=== PATIENT | male | born 1955 | race Caucasian/White ===

== ENCOUNTER 2021-11-14 19:31 | Outpatient (CLI) | payer MEDICARE, BC, SELFPAY | END 2021-11-14 19:32 | disposition home or self-care (01) | DX: G47.33 Obstructive sleep apnea (adult) (pediatric) (principal) | CPT/HCPCS: 95806 ==

== ENCOUNTER 2022-03-15 13:23 | Outpatient (CLI) | payer MEDICARE, BC, SELFPAY ==
[2022-03-15 16:46] LABS: Albumin* 4.8 g/dL (3.3-5.0); Chloride* 98 mmol/L (96-114); Potassium* 3.7 mmol/L (3.6-5.1); Sodium* 139 mmol/L (135-149)
[2022-03-15 16:48] LABS: Estimated Glomerular Filt Rate 82 ml/min
[2022-03-15 16:49] LABS: Alanine Aminotransferase* 35 U/L (4-50); Alkaline Phosphatase* 65 U/L (40-150); Aspartate Amino Transferase* 53 U/L (12-35); Bilirubin Direct* 0.3 mg/dL (0.0-0.5); Bilirubin Total* 0.6 mg/dL (0.1-1.5); Blood Urea Nitrogen* 19 mg/dL (7-30); Carbon Dioxide* 30 mmol/L (20-32); Glucose* 96 mg/dL (60-115); Total Protein* 7.8 g/dL (6.0-8.3)
[2022-03-15 16:50] LABS: Calcium* 9.2 mg/dL (8.4-10.6)
== END 2022-03-15 13:24 | disposition home or self-care (01) ==
PROVIDERS: Visit Provider Nurse Practitioner Family
DX: J18.9 Pneumonia, unspecified organism (principal); J06.9 Acute upper respiratory infection, unspecified; R53.81 Other malaise
CPT/HCPCS: 80053; 80076; 87086

== ENCOUNTER 2022-11-24 13:51 | Emergency (ER) | payer OTHER, SELFPAY ==
[2022-11-24 13:58] VITALS: BP 151/81; PULSE 67; RESP 18; TEMP 36.5; O2SAT 98; BMI 34.1
--- NOTE | 2022-11-24 14:19 | CRLHL7_ITS ---
For Patients: As a result of the Century Cures Act, medical imaging exams and procedure reports are released immediately into your electronic medical record. You may view this report before your referring provider. If you have questions, please contact your health care provider. INDICATION: Left lower quadrant pain. TECHNIQUE: CT abdomen and pelvis acquired with 107 cc Isovue 370 IV contrast. COMPARISON: July 31, 2021. FINDINGS: Lower chest: Scattered atelectasis. Liver: Hepatic steatosis. Stable hyperdense focus in the right hepatic lobe. No suspicious masses. Gallbladder and bile ducts: Unremarkable. No stones or inflammation. No biliary dilatation. Pancreas: Unremarkable. No mass or inflammation. Spleen: Unremarkable. Normal in size. No masses. Adrenal glands: Unremarkable. No nodules. Kidneys: Unremarkable. No suspicious masses, stones, or hydronephrosis. GI tract: Severe colonic diverticulosis. Focal sigmoid diverticulitis.. Normal in caliber. No sign of mass or inflammation. Normal appendix. Vasculature: Moderate aortoiliac arterial calcifications. Abdominal aorta is normal in caliber. Mesenteric arteries are patent. Lymph nodes: No lymphadenopathy. Peritoneum/Abdominal Wall: Persistent small bowel containing umbilical hernia without obstruction. No sign of mass or infiltration. No free air or significant free fluid. Pelvis: Unremarkable. Bones: Unremarkable for age. IMPRESSION: Acute uncomplicated sigmoid diverticulitis. No drainable fluid collections. Additional severe pancolonic diverticulosis. Persistent small bowel containing umbilical hernia without obstruction. Please note that all CT scans at this facility use dose modulation, iterative reconstruction, and/or weight-based dosing when appropriate to reduce radiation dose to as low as reasonably achievable. Dictated by Ramsey Joya MD @ 11/24/2022 4:14:21 PM (Electronically Signed)
--- NOTE | 2022-11-24 14:34 | ED.GENADULT ---
HPI - General Adult General Date Seen: 11/24/22 Chief complaint: Abdominal Pain Stated complaint: Needs CT, lower abdominal pain Time Seen by Provider: 11/24/22 13:53 Source: patient Mode of arrival: ambulatory Limitations: no limitations History of Present Illness HPI narrative: Patient is a 67-year-old male presenting for meds but full left lower quadrant abdominal pain. Says the pain has been going on for the past couple days. Denies ever having pain like this before. States this worsened left lower quadrant does radiate across his abdomen and to the suprapubic and right lower quadrant region. Has had colonoscopies in the past showing had he does have diverticulosis. Had a bowel movement this morning that she says was a normal bowel but was soft and normal. Denies any dysuria. Has had a low-grade fever intermittently that had a T-max of 100? F. he went to urgent care initially and he was sent to us for a CT scan for better evaluation of his symptoms. He has not been around any sick contacts that he is aware of. Has had some occasional nausea but otherwise has been eating and drinking normally. Denies PCB medications at the urgent care. Denies chest pain, shortness of breath, headache, vision changes, lightheadedness, dizziness, weakness, numbness. Has had a previous left inguinal hernia pair and has recurrent umbilical hernia Related Data Home Medications Medication Instructions Recorded Confirmed amlodipine 5 mg tablet 5 mg PO 03/15/22 11/24/22 losartan 25 mg tablet 25 mg PO 03/15/22 11/24/22 omeprazole 20 mg capsule,delayed 20 mg PO 03/15/22 11/24/22 release albuterol sulfate 90 mcg/actuation inhalation 11/24/22 11/24/22 aerosol inhaler aspirin 81 mg tablet,delayed 81 mg PO QDAY 11/24/22 11/24/22 release (Adult Low Dose Aspirin) carvedilol 12.5 mg tablet 12.5 mg PO BID blood pressure 11/24/22 11/24/22 clopidogrel 75 mg tablet 75 mg PO DAILY 11/24/22 11/24/22 nitroglycerin 0.4 mg sublingual 0.4 mg sublingual ONCE 11/24/22 11/24/22 tablet rosuvastatin 20 mg tablet 20 mg PO QPM 11/24/22 11/24/22 Previous Rx's Medication Instructions Recorded amoxicillin 875 mg-potassium 1 tab PO Q8H #15 tabs 11/24/22 clavulanate 125 mg tablet ondansetron 4 mg disintegrating 4 mg PO Q6H #20 tabs 11/24/22 tablet Allergies Allergy/AdvReac Type Severity Reaction Status Date / Time No Known Drug Allergies Allergy Verified 11/24/22 12:43 Review of Systems Status of ROS: Reports: 10 or more systems reviewed and unremarkable except as noted in History and below PFSH PFS Medical History Sinus infection ?J32.9 - Chronic sinusitis, unspecified (ICD-10) Malaise ?R53.81 - Other malaise (ICD-10) Social History Smoking Status: Former smoker Do you use any of these nicotine containing products: None Exam Narrative: Exam Narrative: Const: Well-nourished, Well-developed, in mild distress Eyes: PERRL, no conjunctival injection, and symmetrical lids ENMT: Atraumatic external nose and ears. Moist mucous membranes. Neck: Symmetric, trachea midline, No thyromegaly. CVS: RRR, No murmurs or gallops. Peripheral pulses 2+ and equal in all extremities RESP: Unlabored respiratory effort. Clear to auscultation bilaterally. GI: Diffuse abdominal tenderness worse in the left lower quadrant, mild guarding, reducible umbilical hernia MSK:Extremities w/o deformity, Normal Active ROM Skin: Warm, Dry. No rashes or lesions. Neuro: Normal Muscle tone, No focal neurological deficits. Psych: Awake, Alert, & Oriented x3. Appropriate mood and affect. Const: Vital Signs, click to edit/add: Vital Signs - 24 hr 11/24/22 13:58 11/24/22 16:30 Temperature 97.7 F 97.6 F Pulse Rate [Right Pulse Oximeter] 67 70 Respiratory Rate 18 16 Blood Pressure [Ri ght Upper Arm] 151/81 H 141/96 H Pulse Oximetry 98 96 Oxygen Delivery Me thod Room Air Room Air Course Vital Signs Vital signs: Initial Vital Signs Temperature 97.7 F 11/24/22 13:58 Temperature Source Temporal Artery Scan 11/24/22 13:58 Pulse Rate 67 11/24/22 13:58 Respiratory Rate 18 11/24/22 13:58 Blood Pressure 151/81 H 11/24/22 13:58 Blood Pressure Mean 104 11/24/22 13:58 Blood Pressure Position Sitting 11/24/22 13:58 Pulse Oximetry 98 11/24/22 13:58 Oxygen Delivery Method Room Air 11/24/22 13:58 Vital Signs Temperature 97.7 F 11/24/22 13:58 Pulse Rate 67 11/24/22 13:58 Respiratory Rate 18 11/24/22 13:58 Blood Pressure 151/81 H 11/24/22 13:58 Pulse Oximetry 98 11/24/22 13:58 Oxygen Delivery Method Room Air 11/24/22 13:58 Temperature 97.6 F 11/24/22 16:30 Pulse Rate 70 11/24/22 16:30 Respiratory Rate 16 11/24/22 16:30 Blood Pressure 141/96 H 11/24/22 16:30 Pulse Oximetry 96 11/24/22 16:30 Oxygen Delivery Method Room Air 11/24/22 16:30 Medical Decision Making MDM Narrative Medical decision making narrative: Patient is a 67-year-old male the 4 quadrant abdominal pain. Symptoms were gone for the past few days. Has known diverticulosis. Has had bowel movement today they says was softer than normal. Some nausea but no vomiting. Previous hernia surgery under current reducible umbilical hernia but no other abdominal surgeries. Initially went to Urgent Care was sent here for CT scan. Patient given Toradol and Zofran for his symptoms. Also we were cbc, CMP, urinalysis. COVID/flu/RSV is also in the ordered. Lipase was not ordered because we do not have the reagent available at this time and pancreatitis is unlikely. We did order CT with IV contrast which will also feel as if there any signs of pancreatitis. Patient's CBC showed no concerning abnormalities. CMP showed no concerning abnormalities. Urinalysis shows no signs of UTI. COVID/flu/RSV is negative. Patient was given Toradol for pain and Zofran for nausea. Also given 1 L of normal saline. His CT scan was ordered and results showed acute uncomplicated diverticulitis as expected. This is consistent with his symptoms. No signs of pancreatitis. No signs of appendicitis. He is otherwise doing well me discharged home with Augmentin and given a prescription for Zofran. He is agreeable to this plan. Lab Data Labs: Lab Results 11/24/22 11/24/22 Range/Units 14:19 14:45 WBC 9.14 (4.50-11.00) K/uL RBC 4.54 (4.30-5.90) m/uL Hgb 14.0 (13.5-17.5) gm/dL Hct 42.8 (37.0-53.0) % MCV 94 (80-100) fL MCH 31 (26-34) pg MCHC 33 (32-36) gm/dL RDW Coeff of Dulce 12.1 (11.5-15.5) % Plt Count 227 (140-440) K/uL Neut % (Auto) 76.5 H (42.0-72.0) % Lymph % (Auto) 14.9 L (20-44) % [place] % (Auto) 7.3 (0.0-11.0) % Eos % (Auto) 0.9 (0.0-7.0) % Baso % (Auto) 0.1 (0.0-3.0) % Neut # (Auto) 7.00 (1.7-7.0) K/uL Lymph # (Auto) 1.40 (0.90-2.90) K/uL [place] # (Auto) 0.70 (0.00-0.90) K/UL Eos # (Auto) 0.08 (0.00-0.50) K/uL Baso # (Auto) 0.01 (0.00-0.30) K/uL Abs Immat Gran (auto) 0.03 (0.00-0.30) K/uL Imm/Tot Granulo (auto) 0.3 % Sodium 132 L (135-149) mmol/L Potassium 4.2 (3.6-5.1) mmol/L Chloride 96 (96-114) mmol/L Carbon Dioxide 24 (20-32) mmol/L Anion Gap 12 (7-15) mEq/L BUN 15 (7-30) mg/dL Creatinine 0.6 (0.5-1.5) mg/dL Estimated Creat Clear 66.10 Estimated GFR 105 ml/min Glucose 92 (60-115) mg/dL Calcium 8.8 (8.4-10.6) mg/dL Total Bilirubin 0.5 (0.1-1.5) mg/dL AST 29 (12-35) U/L ALT 21 (4-50) U/L Alkaline Phosphatase 59 (40-150) U/L Total Protein 7.9 (6.0-8.3) g/dL Albumin 4.4 (3.3-5.0) g/dL Urine Color Yellow (Yellow) Urine Appearance Clear (Clear) Urine pH 5.5 (5.0-8.5) Ur Specific Slaughter 1.025 (1.000-1.030) Urine Protein 1+ A (Negative) Urine Glucose (UA) Negative (Negative) Urine Ketones Trace A (Negative) Urine Blood 1+ A (Negative) Urine Nitrite Negative (Negative) Urine Bilirubin Negative (Negative) Urine Urobilinogen 0.2 (0.2-1.0) Ur Leukocyte Esterase Negative (Negative) Urine RBC 0-2 (0-2) Urine WBC 0-2 (0-5) Ur Squamous Epith Cells None (None-Few) Urine Bacteria None (None) SARS-CoV-2 (PCR) Negative SARS-CoV-2 (Negative) Influenza Type A (PCR) Negative PCR FLU A (Negative) Influenza Type B (PCR) Negative PCR FLU B (Negative) RSV (PCR) Negative PCR RSV (Negative) Imaging Data CT scan - abdomen: Radiologist's impression: INDICATION: Left lower quadrant pain. TECHNIQUE: CT abdomen and pelvis acquired with 107 cc Isovue 370 IV contrast. COMPARISON: July 31, 2021. FINDINGS: Lower chest: Scattered atelectasis. Liver: Hepatic steatosis. Stable hyperdense focus in the right hepatic lobe. No suspicious masses. Gallbladder and bile ducts: Unremarkable. No stones or inflammation. No biliary dilatation. Pancreas: Unremarkable. No mass or inflammation. Spleen: Unremarkable. Normal in size. No masses. Adrenal glands: Unremarkable. No nodules. Kidneys: Unremarkable. No suspicious masses, stones, or hydronephrosis. GI tract: Severe colonic diverticulosis. Focal sigmoid diverticulitis.. Normal in caliber. No sign of mass or inflammation. Normal appendix. Vasculature: Moderate aortoiliac arterial calcifications. Abdominal aorta is normal in caliber. Mesenteric arteries are patent. Lymph nodes: No lymphadenopathy. Peritoneum/Abdominal Wall: Persistent small bowel containing umbilical hernia without obstruction. No sign of mass or infiltration. No free air or significant free fluid. Pelvis: Unremarkable. Bones: Unremarkable for age. IMPRESSION: Acute uncomplicated sigmoid diverticulitis. No drainable fluid collections. Additional severe pancolonic diverticulosis. Persistent small bowel containing umbilical hernia without obstruction. Please note that all CT scans at this facility use dose modulation, iterative reconstruction, and/or weight-based dosing when appropriate to reduce radiation dose to as low as reasonably achievable. Dictated by Ramsey Joya MD @ 11/24/2022 4:14:21 PM Discharge Plan Discharge Clinical Impression: Diverticulitis Patient Disposition: Home, Self-Care Condition: Stable Instructions: Diverticulitis (ED) Additional Instructions: You have diverticulitis. Take Zofran as needed for nausea. Take the Augmentin as directed to clear the infection. Follow up with the primary care provider. Urine take Tylenol and ibuprofen for pain. Return for new worsening symptoms Prescriptions: New amoxicillin-pot clavulanate 875-125 mg tablet 1 tab PO Q8H Qty: 15 0RF ondansetron 4 mg tablet,disintegrating 4 mg PO Q6H Qty: 20 0RF No Action losartan 25 mg tablet 25 mg PO omeprazole 20 mg capsule,delayed release(DR/EC) 20 mg PO amlodipine 5 mg tablet 5 mg PO Patient Comments: TAKE 1 TABLET BY MOUTH DAILY carvedilol 12.5 mg tablet 12.5 mg PO BID rosuvastatin 20 mg tablet 20 mg PO QPM clopidogrel 75 mg tablet 75 mg PO DAILY albuterol sulfate 90 mcg/actuation HFA aerosol inhaler inhalation aspirin [Adult Low Dose Aspirin] 81 mg tablet,delayed release (DR/EC) 81 mg PO QDAY nitroglycerin 0.4 mg tablet, sublingual 0.4 mg sublingual ONCE Rx Instructions: as a single dose; administer 5-10 minutes before situation known to precipitate angina attack Follow Up/Referrals: Geneva Singer MD [Primary Care Provider] - Stand Alone Forms: [facility] Info Instructions
[2022-11-24 14:35] LABS: Appearance Urine Clear (Clear); Bilirubin Urine Negative (Negative); Blood Urine 1+ (Negative); Color Urine Yellow (Yellow); Glucose Urine Negative (Negative); Ketones Urine Trace (Negative); Leukocyte Esterase Urine Negative (Negative); Nitrite Urine Negative (Negative); Protein Urine 1+ (Negative); Specific Gravity Urine 1.025 (1.000-1.030); Urobilinogen Urine 0.2 (0.2-1.0); pH Urine 5.5 (5.0-8.5)
[2022-11-24 14:49] LABS: RBC Urine 0-2 (0-2); WBC Urine 0-2 (0-5)
[2022-11-24 14:52] LABS: Basophils Absolute Auto 0.01 K/uL (0.00-0.30); Basophils Percent Auto 0.1 % (0.0-3.0); Eosinophils Absolute Auto 0.08 K/uL (0.00-0.50); Eosinophils Percent Auto 0.9 % (0.0-7.0); Hematocrit 42.8 % (37.0-53.0); Immature Granulocytes Abs Auto 0.03 K/uL (0.00-0.30); Immature Granulocytes Pct Auto 0.3 %; Lymphocytes Percent Auto 14.9 % (20-44); Mean Corpuscular HGB Conc 33 gm/dL (32-36); Mean Corpuscular Hemoglobin 31 pg (26-34); Mean Corpuscular Volume 94 fL (80-100); Monocytes Percent Auto 7.3 % (0.0-11.0); Neutrophils Percent Auto 76.5 % (42.0-72.0); Platelet Count* 227 K/uL (140-440); RDW Coefficient of Variation % 12.1 % (11.5-15.5); Red Blood Count 4.54 m/uL (4.30-5.90); White Blood Count* 9.14 K/uL (4.50-11.00)
[2022-11-24 14:58] LABS: Slide Review Reflex No
[2022-11-24] MEDS: KETOROLAC 15 MG/ML inj IVP ×2 (15:03→16:42)
[2022-11-24 15:04] LABS: Albumin* 4.4 g/dL (3.3-5.0); Chloride* 96 mmol/L (96-114)
[2022-11-24] MEDS: ONDANSETRON 2 MG/ML inj 4 MG IVP (15:04)
[2022-11-24 15:05] LABS: Potassium* 4.2 mmol/L (3.6-5.1); Sodium* 132 mmol/L (135-149)
[2022-11-24 15:07] LABS: Anion Gap 12 mEq/L (7-15); Aspartate Amino Transferase* 29 U/L (12-35); Bilirubin Total* 0.5 mg/dL (0.1-1.5); Carbon Dioxide* 24 mmol/L (20-32); Creatinine* 0.6 mg/dL (0.5-1.5); Estimated Glomerular Filt Rate 105 ml/min; Total Protein* 7.9 g/dL (6.0-8.3)
[2022-11-24 15:08] LABS: Alanine Aminotransferase* 21 U/L (4-50); Alkaline Phosphatase* 59 U/L (40-150); Blood Urea Nitrogen* 15 mg/dL (7-30); Calcium* 8.8 mg/dL (8.4-10.6); Glucose* 92 mg/dL (60-115)
[2022-11-24 15:30] LABS: PCR FLU A Negative PCR FLU A (Negative); PCR FLU B Negative PCR FLU B (Negative); PCR RSV Negative PCR RSV (Negative)
[2022-11-24 15:33] LABS: SARS PCR* Negative SARS-CoV-2 (Negative)
[2022-11-24 16:30] VITALS: BP 141/96; PULSE 70; RESP 16; TEMP 36.4; O2SAT 96
[2022-11-24] MEDS: AMOXICILLIN/CLAVULANATE 875 mg/125 mg TABLET PO (16:42)
== END 2022-11-24 16:52 | disposition home or self-care (01) ==
PROVIDERS: Emergency Provider Student in an Organized Health Care Education/Training Program; PCP Internal Medicine
DX: K57.92 Diverticulitis of intestine, part unspecified, without perforation or abscess without bleeding (principal)
CPT/HCPCS: 36415; 74177; 80053; 81001; 85025; 87631; 96374; 96375; 99283; 99284; 99285; A9270; J1885; J2405; Q9967

== ENCOUNTER 2024-10-27 14:45 | Outpatient (RCR) | payer OTHER, SELFPAY ==
--- NOTE | 2024-08-26 11:42 | PT.OPEX ---
PT [place] Outpatient Eval PT [facility] Outpatient Eval Start: 08/25/24 13:28 Freq: Status: Active Protocol: Document 08/25/24 13:43 VMS (Rec: 08/25/24 16:05 VMS [id number]) E-signed By Yesenia Gonzalez Physical Therapy Outpatient Evaluation Insurance Information Recert Due Date 11/17/24 Insurance Name [employer] Insurance HP Journey Information/Comments Medical Diagnosis Plantar fascial fibromatosis Calcaneal bone contusion Treating Diagnosis L heel pain Antalgic gait and impaired balance secondary to plantar fasciitis Imaging Report 08/20/2024: Axial and Lateral views of the left heel Information were obtained today from [facility], were ordered and reviewed by me today, and show no acute fractures, avulsions, or intraosseous pathology. No signs of AVN. No significant osteophytosis or spurring . Referring MD Olvin Carlos Subjective Preferred Name Efrain Subjective Aug 25 2024 : Efrain is a 69 year M with complaints of left heel pain. Currently, he experiences severe pain upon waking and walking with shoes and without shoes. Later in the day can walk but still painful. Onset: 2 weeks ago Aggravating Factors: Walking, resting long periods of time Easing Factors: Stretching, ibuprofen Method of Injury: insidious onset Radiation: Denies Numbness / Tingling: Tingling in the front of the foot (existing concern that is being managed) Progression: gradually improving since appointment with Dr. Carlos Shoes: Sketchers, slippers at home, unable to walk barefoot History of Foot Injuries: no hx of plantar fasciitis. Review of Systems: History obtained from chart review, health history form, and the patient. I am only responding to those symptoms which are directly relevant to my consultation. Recommend the patient follow up with their primary/referring provider for other symptoms. PMH: Stent 2 years ago, HTN, high cholesterol, numbness /tingling in ankle/foot --> All being managed by PCP. Pt notes he feels all are well-controlled. One fall in the last year: tripped over pallet at [place]. No injuries resulting from fall. Pain Comments Pain Location/Type/Rating: stabbing in heel 1-2/10 current 1-2/10 at rest 9/10 at worst Date of Last 08/20/24 Physician Visit Current Work Status Retired Objective Other/Pertinent Functional Tests: Objective Gait: antalgic gait, decreased stance time on left Squats: limited squat depth Balance: tandem: L in back --> 10 sec; R in back --> <5 sec CKC DF: R: 7 cm; L: 10 cm Palpation: TTP on distal end of calcaneus (at insertion of plantar fascia). No TTP along lateral/medial rims of the calcaneus or along distal 2/3 of plantar fascia Posture/Observation: Pes planus in standing A/PROM: Ankle: PF: 80 R; 70 L DF (straight knee/gastroc): -19 deg bilat DF (bent knee): R: -10 deg; L: -13 deg Eversion: R: 20 deg; L: 15 deg Inversion: R: 25 deg; L: 20 deg Knee: Flex: WFL bilat Ext: WFL bilat Strength: Ankle: PF: 5/5 bilat DF: 4/5 bilat Eversion: 5/5 bilat Inversion: 5/5 bilat Knee: Quadriceps: R: 5/5; L: 4/5 with fatiguing weakness Hamstrings: 4+/5 bilat Special Tests: Plantar Fasciitis: Windlass test: (+) on L Tinel's Sign for Tibial Nerve: (+) on L for N/T on lateral anterior dorsum of foot Assessment Assessment/ 2024-08-25: Initial Evaluation Assessment & PT Impression Impression: Efrain is a pleasant 69 year male presenting to outpatient physical therapy with primary complaint of left heel pain secondary to plantar fasciitis. Pertinent physical examination findings include limited gastrocnemius and soleus length, pes planus (contributing to risk of developing plantar fasciitis), impaired balance, and a positive Windlass test. Functionally, the patient is limited in activities including walking without pain and completing ADLs. Education to patient and regarding typical timeline of healing, recommendations for footwear/orthotics, and results of examination. He requires skilled physical therapy in order to address the above impairments, improve patients symptom status, and assist him in returning to his prior level of function. Barriers to Learning: None Primary Functional ADLs, walking, gardening, recreational/social Limitations activities Plan of Care Rehabilitation Excellent Potential Physical Therapy STG: Goals 1. Patient will be independent with HEP by the end of 2 weeks. 2. Patient will be able to walk short distances (5-10 feet) without pain higher than 2/10 by the end of 2 weeks. LT. Patient will be able to walk longer distances (50+ feet) without pain higher than 2/10 by the end of 8 weeks in order to facilitate completion of ADLs as well as participation in recreational/social activities. 2. Patient's gastrocnemius length will increase by at least 10 deg bilaterally by the end of 8 weeks to decrease risk of re-aggravation of plantar fasciitis. Patient goal: 1. Patient will be able to garden for at least 30 minutes pain free by the end of PT course of care. Coordination/ Referral Source Communication With Treatment Plan/ Joint Mobilization,Manual Therapy,Neuromuscular Re-ed, Direct Interventions Therapeutic Activities,Therapeutic Exercises Frequency/Duration 1x/week for 8 weeks Patient Will Be Completion of LTG(s),Independent w/HEP,Independently Discharged From Progressing Therapy Evaluation Billing Untimed Code 42 Treatment Minutes Complexity Low Certification Information Provider Signature Communication Only-No Signature Required Required
== END 2024-11-13 11:49 | disposition home or self-care (01) ==
PROVIDERS: PCP Internal Medicine; Visit Provider Orthopaedic Surgery Sports Medicine
DX: M72.2 Plantar fascial fibromatosis (principal); T14.8XXA Other injury of unspecified body region, initial encounter; Z51.89 Encounter for other specified aftercare
CPT/HCPCS: 97110; 97140; 97161

== ENCOUNTER 2024-12-17 16:39 | Emergency (ER) | payer OTHER, SELFPAY ==
--- OUTSIDE RECORDS SUMMARY | 2024-11-05 12:10 | XMS_ITS | Encounter Summary ---
Author Organization [facility] Address [address] [place] [address] Care Team Providers Care Label Cutter Name Role Phone Geneva Singer MD Primary Care Provide r Encounter Details Date Type Department Care Team (Late st Contact Info) Description 11/05/2024 12:10 PM CDT Lab Visit [facility] [id number] [place] [id number] Hyponatremia; Localized edema Social History Tobacco Use Types Packs/Day Years Used Date Smoking Tobacco: Former Cigarettes 1 40 0 05/07/1979 - 05/07/2019 Smokeless Tobacco: Never Alcohol Use Standard Drinks/Week Comments Yes 0 (1 standard drink = 0.6 oz pur e alcohol) 6/week PHQ-2 Answer Date Recorded PHQ-2 Score 1 10/13/2024 Financial Resource Strain Answer Date R ecorded Is it hard for you to pay fo r the very basics like food, housing, medical care or heating? No 01/21/2023 Food Insecurity Answer Date Recorded Does your food run out before you have the money to buy more? No 01/21/2023 Transportation Needs Answer Date Record ed Does a lack of transportatio n keep you from your medical appointments or from getting your medications? 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 file documented as of this encounter Plan of Treatment Upcoming Encounters Date Type Department Care Team (Late st Contact Info) Description 01/25/2025 5:00 PM CDT Appointment [facility] Internal Medicine [address] [place] [address] Geneva Singer MD [address] [place] [address] Medicare Annual Wellness documented as of this encounter Procedures Procedure Name Priority Date/Time Associated Diagnosis Comments BASIC METABOLIC PANEL Routine 11/05/2024 12:12 PM CDT Hyponatremia Localized edema documented in this encounter Results * (ABNORMAL) Basic Metabolic Panel (11/05/2024 12:12 PM CDT) Sodium 134(L) 136 - 145 mmol/L 11/05/2024 5:03 PM [facility] Potassium 4.5 3.5 - 5.1 mmol/L 11/05/2024 5:03 PM [facility] Chloride 98 98 - 109 mmol/L 11/05/2024 5:03 PM [facility] CO2 24 20 - 29 mmol/L 11/05/2024 5:03 PM [facility] Anion Gap 12 6 - 16 mmol/L 11/05/2024 5:03 PM [facility] Calcium 9.3 8.4 - 10.4 mg/dL 11/05/2024 5:03 PM [facility] BUN 13 7 - 26 mg/dL 11/05/2024 5:03 PM [facility] Creatinine 0.70(L) 0.73 - 1.18 mg/dL 11/05/2024 5:03 PM [facility] Glucose 93 70 - 100 mg/dL 11/05/2024 5:03 PM [facility] Comment:The given reference range is for the fasting state. Non-fasting reference range for glucose is 70 - 180 mg/dL. GFR, Estimated >60 >60 mL/min/1.7 3m2 11/05/2024 5:03 PM [facility] Hours Fasting 0.0 8 - 12 Hours 11/05/2024 5:03 PM CDT [facility] Blood Venipuncture / Unknown 11/05/2024 12:12 PM CDT 11/05/2024 12:12 PM CDT us Jonah Riggins MD LAB_1 Final Result Performing Organization Address City/State/[facility] Co de Phone Number [facility] [address] [place] [phone] documented in this encounter Visit Diagnoses Diagnosis Hyponatremia Hyposmolality and/or hyponatremia Localized edema Edema documented in this encounter Care Teams Label Cutter Relationship Specialty Start Date End Date Geneva Singer MD [address] [place] [id number] PCP - General Internal Medicine 12/08/19 documented as of this encounter
--- OUTSIDE RECORDS SUMMARY | 2024-12-17 16:41 | XMS_ITS | Encounter Summary ---
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 Kelli Vasquez PharmD * Kelli Vasquez PharmD - 10/28/2024 1:38 PM CDT LMTCB with BP readings. Kelli Vasquez PharmD * Kelli Vasquez PharmD - 10/21/2024 11:31 AM CDT Called pt to follow up on recent home BP readings. LMTCB. Kelli Vasquez PharmD documented in this encounter Plan of Treatment Upcoming Encounters Date Type Department Care Team (Late st Contact Info) Description 01/25/2025 5:00 PM CDT Appointment [facility] Internal Medicine [place], [place] [phone] Geneva Singer MD [place], [place] [phone] Medicare Annual Wellness documented as of this encounter Visit Diagnoses Not on filedocumented in this encounter Care Teams Underwriting Specialist Relationship Specialty Start Date End Date Geneva Singer MD [place], [place] [phone] PCP - General Internal Medicine 12/08/19 documented as of this encounter
--- OUTSIDE RECORDS SUMMARY | 2024-12-17 16:41 | XMS_ITS | Encounter Summary ---
Author Organization [facility] Address [address], [place] [address] Care Team Providers Care Computer Instructor Name Role Phone Geneva Singer MD Primary Care Provide r Encounter Details Date Type Department Care Team (Late Contact Info) Description 01/20/2016 Scanned History External to Transferred Record, Provider [facility] Social History Tobacco Use Types Packs/Day Years Used Date Smoking Tobacco: Never Assessed Sex and Gender Information Value Date Recorded Sex Assigned at Not on file Legal Sex Male 9:51 AM TRANSFER STATION ATTENDANT Gender Identity Not on file Sexual Orientation Not on file documented as of this encounter Plan of Treatment Upcoming Encounters Date Type Department Care Team (Late st Contact Info) Description 01/25/2025 5:00 PM CDT Appointment [facility] Internal Medicine [address] [place] [phone] Geneva Singer MD [address] [place] [address] Medicare Annual Wellness documented as of this encounter Visit Diagnoses Not on filedocumented in this encounter Additional Health Concerns Infection Onset Date Last Indicated Resolved Time R/O COVID19 10/08/2019 10/08/2019 10/10/2019 5:26 AM CDT documented as of this encounter Care Teams Computer Instructor Relationship Specialty Start Date End Date Geneva Singer MD [address] [place] [phone] PCP - General Internal Medicine 12/08/19 documented as of this encounter
--- OUTSIDE RECORDS SUMMARY | 2024-12-17 16:41 | XMS_ITS | Encounter Summary ---
Author Organization [employer] Address [address] [place] [address] Care Team Providers Care Shaper Setter Name Role Phone Geneva Singer MD Primary Care Provide r Encounter Details Date Type Department Care Team (Late Contact Info) Description 06/16/2019 [facility] 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 file documented as of this encounter Plan of Treatment Upcoming Encounters Date Type Department Care Team (Late Contact Info) Description 01/25/2025 5:00 PM CDT Appointment [facility] Internal Medicine [address] [place], [place] [phone] Geneva Singer MD [address] [place], [place] [phone] Medicare Annual Wellness documented as of this encounter Visit Diagnoses Not on filedocumented in this encounter Additional Health Concerns Infection Onset Date Last Indicated Resolved Time R/O COVID19 10/08/2019 10/08/2019 10/10/2019 5:26 AM CDT documented as of this encounter Care Teams Shaper Setter Relationship Specialty Start Date End Date Geneva Singer MD [address] [place] [phone] PCP - General Internal Medicine 12/08/19 documented as of this encounter
--- OUTSIDE RECORDS SUMMARY | 2024-12-17 16:41 | XMS_ITS | Clinical Summary ---
Author Organization [facility] Address [address] [place] [phone] Care Team Providers Care Demolition Expert Name Role Phone Geneva Singer MD Primary Care Provide r Allergies No known active allergies Medications carvedilol (COREG) 12.5 mg tabletIndication s:HTN (hypertension) Take 1 tablet by mouth 2 times daily. 180 tablet 3 6 Active sildenafil citrate (VIAGRA) 100 mg tabletIndication s:Erectile dysfunction of organic origin Take 1 tablet by mouth once daily if needed for Erectile Dysfunction. Take 30min to 4 hours before sexual activity. Max 100mg/24hr. 10 tablet 2 6 Active losartan (COZAAR) 25 mg tablet Take 25 mg by mouth once daily. Active rosuvastatin (CRESTOR) 10 mg tablet Take 10 mg by mouth at bedtime. Active omeprazole 20 mg tablet Take 20 mg by mouth once daily. Active aspirin (ECOTRIN) 81 mg enteric coated tablet Take 81 mg by mouth once daily with a meal. Active clopidogreL (Plavix) 75 mg tablet Take 75 mg by mouth once daily. Active cyanocobalamin (Vitamin B-12) 1,000 mcg tablet Take 1,000 mcg by mouth once daily. Active cholecalciferol, vitamin D3, (VITAMIN D3 ORAL) Take 1,000 Int'l Units/L by mouth once daily. Active gabapentin (Neurontin) 100 mg capsule Take 100 mg by mouth three times daily. Active amLODIPine (NORVASC) 5 mg tablet Take 5 mg by mouth once daily. Active Active Problems Problem Noted Date Diagnosed Date Gastroesophageal reflux disease without esophagi tis 01/06/2023 Alcohol dependence, uncomplicated 01/06/2023 Stented coronary artery 09/20/2022 Overview (01/06/2023): Patient is on Clopidogrel (Plavix) following stent placement. Date of Intervention: 09/20/2022 Type of Stent: HAILE Patient is expected to continue taking Clopidogrel (Plavix) for one year (until 09/20/2023) unless otherwise advised due to subsequent stent placement or continued bleeding. TIMOTHY (obstructive sleep apnea) 01/03/2022 Overview (01/06/2023): Moderate by HST 10/2021 History of colonic polyps 01/05/2021 Vitamin B12 deficiency 10/18/2020 Overview (01/06/2023): Paresthesias. Start oral B12 09/2020 Chest wall mass 05/17/2020 Overview (01/06/2023): Added automatically from request for surgery [id number] SIADH (syndrome of inappropriate ADH production) 07/13/2019 Hyponatremia 07/13/2019 Anxiety disorder 07/13/2019 Sacroiliac joint dysfunction 12/23/2018 Fatty liver 02/04/2018 Tinea pedis of both feet 06/11/2017 Umbilical hernia without obstruction and without gangrene 06/11/2017 Former smoker 06/12/2016 Family history of colon cancer 06/12/2016 COPD (chronic obstructive pulmonary disease) Overview (01/06/2023): Quit smoking 04/2016. 40+ pack year history Mixed hyperlipidemia 01/20/2016 Benign neoplasm of sigmoid colon 09/23/2015 Diverticular disease of large intestine 09/21/19 16 Diaphragmatic hernia 09/21/2015 Erectile dysfunction of organic origin 6 Dysphagia 07/19/2015 HTN (hypertension) 11/12/2014 Depression 11/12/2014 Irritable bowel syndrome with diarrhea 5 Resolved Problems Problem Noted Date Diagnosed Date Resolved Date Tobacco abuse 11/12/2014 05/05/2015 Immunizations Immunization Administration Dates Next Due Influenza, IIV4 02/05/2015 Family History Medical History Relation Name Comments Cancer Father Hypertension Father Diabetes Maternal Aunt Heart Disease Maternal Grandfather Diabetes Maternal Grandmother Heart Disease Maternal Grandmother Heart Disease Paternal Grandmother Relation Name Status Comments Father Maternal Aunt Maternal Grandfather Maternal Grandmother Paternal Grandmother Social History Tobacco Use Types Packs/Day Years Used Date Smoking Tobacco: Former Cigarettes 1 42.1 0 04/04/1973 - 04/28/2015 Passive Smoke Exposure: Past Tobacco Cessation:Counseling Given: Not Answered Alcohol Use Standard Drinks/Week Comments Yes 10 (1 standard drink = 0.6 oz pu re alcohol) PHQ-2 Answer Date Recorded PHQ-2 TOTAL SCORE 1 10/22/2023 Sex and Gender Information Value Date Recorded Sex Assigned at Not on file Legal Sex Male 12:42 PM CDT Gender Identity Not on file Sexual Orientation Not on file 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 Not on file Not on file Obstetrics History Last Filed Vital Signs Vital Sign Reading Time Taken Comments Blood Pressure 122/73 11/20/2023 1:02 PM CDT MAP- 93 Pulse 64 11/20/2023 1:02 PM CDT Temperature 36.6 C (97.8 F) 11/20/2023 1:02 PM CDT Respiratory Rate 16 11/20/2023 1:02 PM CDT Oxygen Saturation 93% 11/20/2023 1:0 2 PM CDT Inhaled Oxygen Concentration - - Weight 103 kg (227 lb) 11/20/2023 1:02 PM CDT Per patient statement- not measured this visit Height 165.1 cm (5' 5) 07/09/2023 2:00 PM CDT Body Mass Index 37.77 07/09/2023 2:00 PM CDT Plan of Treatment Health Maintenance Due Date Last Done Comments Hepatitis C screening for age 18-79 1972 Pneumococcal series for age 50+ (1 of 2 - PCV) 1973 Zoster (shingles) series for age 50+ (1 of 2) 2004 RSV vaccine for adults or (1 - Risk 60-74 years 1-dose series) 2014 BMI (ht and wt on same day) for age 18+ 01/19/2017 01/20/2016, 05/05/2015 Medicare Wellness for age 65+ 2019 Lipids for age 45-75 05/06/2020 05/06/2015 Colonoscopy through age 75 09/20/2020 09/21/2015 Tetanus booster 08/31/2024 08/31/2014 (Comp leted outside of [facility]) Depression screening for age 12+ 10/17/2024 10/18/2023, 07/09/2023, 01/07/2023, Additional history exists COVID-19 vaccine series (2024- season) 2024 01/07/2023, 12/14/2021, 09/04/2021, Additional history exists Influenza Vaccine (#1) 2024 02/05/2015 Hepatitis B series for 19+ Aged Out N o longer eligible based on patient's age to complete this topic Procedures Procedure Name Priority Date/Time Associated Diagnosis Comments SCAN-COLONOSCOPY 09/21/2015 8:30 AM CDT LIPID PANEL W REFLEX MEASURED LDL Routine 05/06/2015 8:07 AM SENIOR BI ARCHITECT Hyperlipidemia, unspecified hyperlipidemia type from Last 3 Months or Most Recently Relevant to Health Maintenance Results * SCAN-COLONOSCOPY (09/21/2015 8:30 AM CDT) Narrative Transcriptions Nicky Rooney MD - 09/21/2015 7:37 AM CDT [facility] [address]], [address], [place] [address] Patient Name: Efrain Ramos Gender: Male Exam Date: 09/21/2015 Visit Number: [id number] Age: 60 Years Date of : 1955 Attending MD: Nicky Rooney MD Medical Record#: [id number] ----- Procedure: Colonoscopy Indications: Family history of colon cancer in patient's father. Agediagnosed: 52. Referring MD: Artis Brar MD Primary MD: Artis Brar MD Medications: Admitting Medication: 0.9% Normal Saline at [facility] Intra Procedure Medications: Received MAC sedation per anesthesia provider Complications: Procedure: An examination of the heart and lungs was performed and found to be withinacceptable limits. The patient was therefore deemed a reasonablecandidate for endoscopy and 1 sedation. The risks and benefits of the procedure were explained to the patient.After obtaining informed consent, MAC sedation was administered peranesthesia provider and I passed the scope without difficulty via the rectum to the cecum. The appendiceal orificeand ic valve were identified. The quality of the prep was good(Miralax/Gatorade/2 tablets Bisacodyl/Magnesium Citrate). This was a complete examination throughout the entire colon. Findings: Polyp location: sigmoid. Quantity: 1. Size: 3 mm. Polyp shape:sessile. Maneuver: polypectomy was performed with a cold snare. Removal: complete. Retrieval: complete. Bleeding: none. Polyp location: rectum. Quantity: 1. Size: 5 mm. Polyp shape: sessile. Maneuver: polypectomy was performed with a cold snare . Removal: complete. Retrieval: complete. Bleeding: none. Diverticulosis. Location: - descending colon - sigmoid. Size:medium. Quantity: several. Mild Inflammation present in areas aroundthe diverticuli Remainder of the exam is normal. Random biopsies were taken throughout the colon to rule out microscopiccolitis. Impression: Family history of colon cancer Colon polyps Diverticulosis of colon without diverticulitis Pathology Results: A: DUODENUM, BIOPSY: 1. Small bowel mucosa without diagnostic abnormality 2. No histologic evidence of celiac disease or other enteropathy B: STOMACH, BIOPSY: 1. Gastric antral and body mucosae with no diagnostic abnormalities 2. No evidence of Helicobacter organisms C: ESOPHAGUS, DISTAL, BIOPSY: 1. Esophageal squamous mucosa with no diagnostic abnormalities 2. No evidence of gastroesophageal reflux, eosinophilic esophagitis orBarrett's mucosa D: ESOPHAGUS, MID, BIOPSY: 1. Esophageal squamous mucosa with no diagnostic abnormalities 2. No evidence of gastroesophageal reflux, eosinophilic esophagitis orBarrett's mucosa E: COLON, RANDOM, BIOPSY: 1. Colonic mucosa with no diagnostic abnormalities 2. No evidence of microscopic, active or chronic colitis F: COLON, SIGMOID, POLYP: 1. Tubular adenoma 2. No evidence of high grade dysplasia 3. Per the attached endoscopy report: a. Polyp size: 3mm b. Resection: Complete c. Retrieval: Complete G: RECTUM, POLYP 1. Tubular adenoma 2. No evidence of high grade dysplasia 3. Per the attached endoscopy report: a. Polyp size: 5mm b. Resection: Complete c. Retrieval: Complete MICROSCOPIC A: Performed B: Performed C: Performed D: Performed E: Performed F: Performed G: Performed H: Performed Electronically signed by: Vicente Moralez MD Final Plan: Return for a colonoscopy in 5 years. We will attempt to contact you at appropriate intervals via U.[place]. mail. Wemay not be able to find you or contact you at that time, therefore youshould know that the responsibility for following our recommendation restswith you. If you don't hear from us at the time your procedure is due,please contact our office to schedule an appointment. If your contactinformation should change, please contact our office so that we can updateyour record. _Electronically signed by: Nicky Rooney MD 09/21/2015 us Nicky Rooney MD OTHER Final Resu lt * (ABNORMAL) LIPID PANEL W REFLEX MEASURED LDL (05/06/2015 8:07 AM SENIOR BI ARCHITECT) CHOLESTEROL,TOTAL 191 100 - 199 mg/dL 05/06/2015 12:53 PM SENIOR BI ARCHITECT [facility] TRIGLYCERIDES 186(H) <150 mg/dL 05/06/2015 12:53 PM SENIOR BI ARCHITECT [facility] HDL CHOLESTEROL 72 >40 mg/dL 05/06/2015 12:53 PM SENIOR BI ARCHITECT [facility] NON-HDL CHOLESTEROL 119 <145 mg/dl 05/06/2015 12:53 PM SENIOR BI ARCHITECT [facility] CHOL/HDL RATIO 2.65 <4.50 05/06/2015 12:53 PM SENIOR BI ARCHITECT [facility] LDL CHOLESTEROL 82 <=130 mg/dL 05/06/2015 12:53 PM SENIOR BI ARCHITECT [facility] PATIENT STATUS NON-FASTI NG 05/06/2015 12:53 PM SENIOR BI ARCHITECT [facility] Blood specimen (specimen) BLOOD SPECIMEN / Unknown Venipuncture / Unknown 05/06/2015 8:07 AM SENIOR BI ARCHITECT 05/06/2015 8:07 AM SENIOR BI ARCHITECT us Artis Brar MD CHEMISTRY Final [facility]u lt [facility] [address] [place] [address], from Last 3 Months or Most Recently Relevant to Health [place] [address] MEDICARE ADVANTAGE [id number] [id number] MEDICARE PART A HB ONLY Care Teams Demolition Expert Relationship Specialty Start Date End Date Geneva Singer MD [address] [place] [phone] PCP - General Internal Medicine 09/24/22
--- OUTSIDE RECORDS SUMMARY | 2024-12-17 16:41 | XMS_ITS | Encounter Summary ---
Author Organization [employer] Address [address], [place] [address] Care Team Providers Care Bandsaw Operator Name Role Phone Geneva Singer MD Primary Care Provide r Encounter Details Date Type Department Care Team (Late Contact Info) Description 12/23/2017 Correspondence [facility], Provider TEST RESULTS TO PT Social History Tobacco Use Types Packs/Day Years Used Date Smoking Tobacco: Former Cigarettes Q uit: 04/01/2016 Smokeless Tobacco: Never Alcohol Use Standard Drinks/Week Comments Yes 0 (1 standard drink = 0.6 oz pur e alcohol) Sex and Gender Information Value Date Recorded Sex Assigned at Not on file Legal Sex Male 9:51 AM EDUCATION ASSOCIATE Gender Identity Not on file Sexual Orientation Not on file 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 file documented as of this encounter Plan of Treatment Upcoming Encounters Date Type Department Care Team (Late Contact Info) Description 01/25/2025 5:00 PM CDT Appointment [facility] Internal Medicine [address] [place], [place] [phone] Geneva Singer MD [address] [place], [place] [phone] Medicare Annual Wellness documented as of this encounter Visit Diagnoses Not on filedocumented in this encounter Additional Health Concerns Infection Onset Date Last Indicated Resolved Time R/O COVID19 10/08/2019 10/08/2019 10/10/2019 5:26 AM CDT documented as of this encounter Care Teams Bandsaw Operator Relationship Specialty Start Date End Date Geneva Singer MD [address] [place] [address] PCP - General Internal Medicine 12/08/19 documented as of this encounter
--- OUTSIDE RECORDS SUMMARY | 2024-12-17 16:41 | XMS_ITS | Encounter Summary ---
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 file documented as of this encounter Plan of Treatment Upcoming Encounters Date Type Department Care Team (Late st Contact Info) Description 01/25/2025 5:00 PM CDT Appointment [facility] Internal Medicine [address] [place] [phone] Geneva Singer MD [place], [place] [phone] Medicare Annual Wellness documented as of this encounter Visit Diagnoses Not on filedocumented in this encounter Care Teams Creative Consultant Relationship Specialty Start Date End Date Geneva Singer MD [address] [place] [phone] PCP - General Internal Medicine 12/08/19 documented as of this encounter
--- OUTSIDE RECORDS SUMMARY | 2024-12-17 16:41 | XMS_ITS | Encounter Summary ---
Author Organization [employer] Address [address], [place] [address] Care Team Providers Care Weigh Machine Operator Name Role Phone Geneva Singer MD Primary Care Provide r Encounter Details Date Type Department Care Team (Late Contact Info) Description 03/18/2018 Consent for Procedure/Treatme nt [facility] INFORMED CONSENT RECORD Social History Tobacco Use Types Packs/Day Years Used Date Smoking Tobacco: Former Cigarettes Q uit: 04/01/2016 Smokeless Tobacco: Never Alcohol Use Standard Drinks/Week Comments Yes 0 (1 standard drink = 0.6 oz pur e alcohol) Sex and Gender Information Value Date Recorded Sex Assigned at Not on file Legal Sex Male 9:51 AM POWERHOUSE HELPER Gender Identity Not on file Sexual Orientation Not on file 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 file documented as of this encounter Plan of Treatment Upcoming Encounters Date Type Department Care Team (Late Contact Info) Description 01/25/2025 5:00 PM CDT Appointment [facility] Internal Medicine [address] [place], [place] [phone] Geneva Singer MD [address] [place], [place] [phone] Medicare Annual Wellness documented as of this encounter Visit Diagnoses Not on filedocumented in this encounter Additional Health Concerns Infection Onset Date Last Indicated Resolved Time R/O COVID19 10/08/2019 10/08/201910/10/2019 5:26 AM CDT documented as of this encounter Care Teams Weigh Machine Operator Relationship Specialty Start Date End Date Geneva Singer MD [address] [place] [phone] PCP - General Internal Medicine 12/08/19 documented as of this encounter
--- OUTSIDE RECORDS SUMMARY | 2024-12-17 16:41 | XMS_ITS | Encounter Summary ---
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 file documented as of this encounter Plan of Treatment Upcoming Encounters Date Type Department Care Team (Late Contact Info) Description 01/25/2025 5:00 PM CDT Appointment [facility] Internal Medicine [address] [place], [place] [phone] Geneva Singer MD [address] [place], [place] [phone] Medicare Annual Wellness documented as of this encounter Visit Diagnoses Not on filedocumented in this encounter Additional Health Concerns Infection Onset Date Last Indicated Resolved Time R/O COVID19 10/08/2019 10/08/201910/10/2019 5:26 AM CDT documented as of this encounter Care Teams Production Welder Relationship Specialty Start Date End Date Geneva Singer MD [address] [place] [phone] PCP - General Internal Medicine 12/08/19 documented as of this encounter
--- OUTSIDE RECORDS SUMMARY | 2024-12-17 16:41 | XMS_ITS | Encounter Summary ---
Author Organization [facility] Address [address] [place] [address] Care Team Providers Care Strawberry Grower Name Role Phone Geneva Hernandez MD Primary Care Provide r Reason for Visit * Reason Comments Refill gabapentin (NEURONTI N) 100 MG capsule [Pharmacy Med Name: GABAPENTIN 100MG CAPSULES] Encounter Details Date Type Department Care Team (Late st Contact Info) Description 10/18/2024 Refill [facility] Internal Medicine [address] [place] [phone] Genvea Hernandez MD [address] [place], [place] [phone] Refill (gabapentin (NEURONTIN) 100 MG capsule [Pharmacy Med Name: GABAPENTIN 100MG CAPSULES]) Social History Tobacco Use Types Packs/Day Years [...] on file Legal Sex Male 9:51 AM CLOTH DRIER Gender Identity Not on file Sexual Orientation Not on file 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 Last qualifying visit: 10/24/2023 (with GENEVA HERNANDEZ) (A more recent visit (in Internal Medicine with DIEGO CARLSON) was found) Next scheduled visit: 12/07/2024 (with GENEVA HERNANDEZ) [facility] Embedded Refills, Reference: [id number], 10/18/2024 10:23:39 AM CASSIDYTHuber: RAJAN Refill Centralized Services - Primary Care ([id number]) documented in this encounter Plan of Treatment Upcoming Encounters Date Type Department Care Team (Late st Contact Info) Description 01/25/2025 5:00 PM CDT Appointment [facility] Internal Medicine [address] [place], [place] [phone] Geneva Hernandez MD [place], [place] [phone] Medicare Annual Wellness documented as of this encounter Visit Diagnoses Not on filedocumented in this encounter Care Teams Strawberry Grower Relationship Specialty Start Date End Date Geneva Hernandez MD [address] [place] [phone] PCP - General Internal Medicine 12/08/19 documented as of this encounter
--- OUTSIDE RECORDS SUMMARY | 2024-12-17 16:41 | XMS_ITS | Encounter Summary ---
[facility] Address [address] [address] Care Team Providers Care Parks Recreation Director Name Role Phone Geneva Singer MD Primary Care Provide r Encounter Details Date Type Department Care Team (Late Contact Info) Description 01/20/2016 Scanned History External to Transferred Record, Provider [facility] Social History Tobacco Use Types Packs/Day Years Used Date Smoking Tobacco: Never Assessed Sex and Gender Information Value Date Recorded Sex Assigned at Not on file Legal Sex Male 9:51 AM PUBLIC POLICY MANAGER Gender Identity Not on file Sexual Orientation Not on file documented as of this encounter Plan of Treatment Upcoming Encounters Date Type Department Care Team (Late st Contact Info) Description 01/25/2025 5:00 PM CDT Appointment [facility] Internal Medicine [address] [place] [phone] Geneva Singer MD [address] [place] [address] Medicare Annual Wellness documented as of this encounter Visit Diagnoses Not on filedocumented in this encounter Additional Health Concerns Infection Onset Date Last Indicated Resolved Time R/O COVID19 10/08/2019 10/08/2019 10/10/2019 5:26 AM CDT documented as of this encounter Care Teams Parks Recreation Director Relationship Specialty Start Date End Date Geneva Singer MD [address] [place] [id number] PCP - General Internal Medicine 12/08/19 documented as of this encounter
--- OUTSIDE RECORDS SUMMARY | 2024-12-17 16:41 | XMS_ITS | Encounter Summary ---
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 file documented as of this encounter Plan of Treatment Upcoming Encounters Date Type Department Care Team (Late st Contact Info) Description 01/25/2025 5:00 PM CDT Appointment [facility] Internal Medicine [address] [place] [phone] Geneva Singer MD [place], [place] [phone] Medicare Annual Wellness documented as of this encounter Visit Diagnoses Not on filedocumented in this encounter Care Teams Inpatient Auditor Relationship Specialty Start Date End Date Geneva Singer MD [address] [place] [phone] PCP - General Internal Medicine 12/08/19 documented as of this encounter
--- OUTSIDE RECORDS SUMMARY | 2024-12-17 16:41 | XMS_ITS | Clinical Summary ---
Author Organization [facility] Address [address] [place] [address] Care Team Providers Care Director Of Family Service Center Name Role Phone Geneva Singer MD Primary Care Provider [phone] Allergies No known active allergies Medications albuterol (PROAIR HFA/PROVENTIL HFA/VENTOLIN HFA) 108 (90 Base) MCG/ACT inhaler Inhale 2 puffs into the lungs. 07/23/2022 Active amLODIPine (NORVASC) 5 MG tablet Take 5 mg by mouth daily. 01/09/2024 Active aspirin 81 MG EC tablet Take 1 tablet by mouth daily. Active budesonide-form oterol (SYMBICORT) 80-4.5 MCG/ACT Inhaler Inhale 1 puff into the lungs. 09/05/2023 Active bumetanide (BUMEX) 1 MG tablet Take 1 mg by mouth daily. 12/06/2023 Active carvedilol (COREG) 12.5 MG tablet Take 12.5 mg by mouth. 07/11/2023 Active Vitamin D3 50 mcg (2000 units) tablet Take 2,000 Units by mouth. Active clopidogrel (PLAVIX) 75 MG tablet Take 1 tablet by mouth daily. 06/18/2023 Active cyanocobalamin (VITAMIN B-12) 1000 MCG tablet Take 1,000 mcg by mouth. 3-4 times a week Active gabapentin (NEURONTIN) 100 MG capsule TAKE 1 CAPSULE(100 MG) BY MOUTH DAILY AT BEDTIME 10/22/2023 Active hydrOXYzine HCl (ATARAX) 10 MG tablet Take 10-20 mg by mouth. 04/16/2023 Active losartan (COZAAR) 25 MG tablet Take 1 tablet by mouth daily. 01/09/2024 Active nitroGLYcerin (NITROSTAT) 0.[address] 0.4 mg under the tongue. 09/20/2022 Active rosuvastatin (CRESTOR) 20 MG tablet Take 20 mg by mouth daily. 01/09/2024 Active topiramate (TOPAMAX) 50 MG tablet START WITH ONE-HALF TABLET AT NIGHT FOR 1 WEEK. THEN IF TOLERATING, INCREASE DIRECTED UP TO 1 TABLET BY MOUTH TWICE DAILY 10/24/2023 Active vilazodone (VIIBRYD) 20 MG TABS tablet Take 30 mg by mouth. 02/11/2023 Active Social History Tobacco Use Types Packs/Day Years Used Date Smoking Tobacco: Former Cigarettes Smokeless Tobacco: Never Tobacco Cessation:Counseling Given: Not Answered Alcohol Use Standard Drinks/Week Comments Yes 0 (1 standard drink = 0.6 oz pur e alcohol) socially Interpersonal Safety Answer Date Record ed Do you feel physically and e motionally safe where you currently live? Yes 01/23/2024 Within the past 12 months, h ave you been hit, slapped, kicked or otherwise physically hurt by someone? No 01/23/2024 Within the past 12 months, h ave you been humiliated or emotionally abused in other ways by your partner or ex-partner? No 01/23/2024 Sex and Gender Information Value Date Recorded Sex Assigned at Not on file Legal Sex Male 9:18 AM CDT Gender Identity Not on file Sexual Orientation Not on file Last Filed Vital Signs Vital Sign Reading Time Taken Comments Blood Pressure 129/83 01/23/2024 3:00 PM CDT Pulse 68 01/23/2024 3:30 PM CDT Temperature 36.9 C (98.4 F) 01/23/2024 3:00 PM CDT Respiratory Rate 16 01/23/2024 3:00 PM CDT Oxygen Saturation 84% 01/23/2024 3:[address] Ayden MD updated and assessed the pt.. Inhaled Oxygen Concentration - - Weight 100.6 kg (221 lb 11.2 oz) 01/23/2024 11:27 AM CDT Height 171.5 cm (5' 7.52) 01/15/2024 4 :15 PM CDT Body Mass Index 34.19 01/15/2024 4:15 PM CDT Plan of Treatment Health Maintenance Due Date Last Done Comments ADVANCE CARE PLANNING 1954 ANNUAL REVIEW OF HM ORDERS 1954 CT COLONOGRAPHY 1954 DIABETES SCREENING 1954 FIT 1954 FLEX SIG 1954 LIPID 1954 sDNA (Cologuard) 1954 RSV VACCINE (1 - Risk 60-74 years 1-dose series) 2014 FALL RISK ASSESSMENT 2019 MEDICARE ANNUAL WELLNESS VISIT 2019 PHQ-2 (once per calendar year) 2024 DTAP/TDAP/TD VACCINE (2 - Td or Tdap) 08/31/2024 08/31/2014 LUNG CANCER SCREENING 09/04/2024 09/05/2023 , 09/05/2023, 08/30/2022, Additional history exists COVID-19 VACCINE ( season) 2024 12/22/2023, 01/07/2023, 12/14/2021, Additional history exists INFLUENZA VACCINE (#1) 2024 , 01/07/2023, 12/14/2021, Additional history exists COLONOSCOPY 01/05/2031 01/05/2021, 09/21/2015 COLORECTAL CANCER SCREENING 01/05/2031 HEPATITIS C SCREENING Completed 06/12/2016 AORTIC ANEURYSM SCREENING (SYSTEM ASSIGNED) Completed 06/20/2020, 02/24/2020, 06/16/2019 ZOSTER VACCINE Completed 12/22/2020, 09/30, 06/29/2016 PNEUMOCOCCAL VACCINE 50+ YEARS Completed 05/17/2022, 05/20/2018 HPV VACCINE (No Doses Required) Completed MENINGITIS VACCINE Aged Out No longer eligible based on patient's age to complete this topic Insurance [facility] Care Teams Director Of [facility] Service Center Relationship Specialty Start Date End Date Geneva Singer MD [address] [place] [phone] PCP - General Internal Medicine 12/27/23
--- OUTSIDE RECORDS SUMMARY | 2024-12-17 16:41 | XMS_ITS | Encounter Summary ---
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 file documented as of this encounter Plan of Treatment Upcoming Encounters Date Type Department Care Team (Late st Contact Info) Description 01/25/2025 5:00 PM CDT Appointment [facility] Internal Medicine [address] [place], [place] [phone] Geneva Singer MD [place], [place] [phone] Medicare Annual Wellness documented as of this encounter Visit Diagnoses Not on filedocumented in this encounter Care Teams Global Vp Creative + Content Marketing Relationship Specialty Start Date End Date Geneva Singer MD [address] [place] [phone] PCP - General Internal Medicine 12/08/19 documented as of this encounter
--- OUTSIDE RECORDS SUMMARY | 2024-12-17 16:41 | XMS_ITS | Clinical Summary ---
Author Organization [facility] Address [address] [place] [address] Care Team Providers Care Paper Cone Maker Name Role Phone Geneva Singer MD Primary Care Provide r Source Comments You are receiving this document as you are listed as the primary care provider,follow-up provider, or the patient has been referred to you for consultation.This is in compliance with the Medicare and[facility] Incentive [facility],which states Providers who transition their patient to another setting of careor provider of care or refers their patient to another provider of care shouldprovide summary care record for each transition of care or referral. [facility] Allergies No known active allergies Medications vitamin B-12 (AKA: CYANOCOBALAMIN) 1000 MCG tablet Take 1 Tablet by mouth daily. 90 Tablet 3 10/19/19 21 Active Additional Information Patient taking differently:1,000 mcg OralTHREE TIMES WEEKLY, Reported on 07/28/2024 ALBUterol sulfate HFA 108 (90 Base) MCG/ACT inhaler Inhale 2 Puffs every 4 hours as needed for Shortness of Breath. 8.5 g 2 07/24/19 23 Active aspirin EC 81 MG enteric coated tablet Take 1 Tablet (81 mg) by mouth daily. Active vilazodone (VIIBRYD) 40 MG tablet Take 1 Tablet (40 mg) by mouth daily with meal. 02/12/20 23 Active cholecalciferol (VITAMIND3) 50 MCG (2000 UT) tablet Take 1 Tablet (2,000 Units) by mouth daily. Active hydrOXYzine HCl (ATARAX) 10 MG tablet Take 1-2 Tablets (10-20 mg) by mouth three times a day as needed for Anxiety. 30 Tablet 1 04/16/19 24 Active omeprazole (PRILOSEC) 20 MG capsuleIndications :Dysphagia, unspecified type,LPRD (laryngopharyngeal reflux disease) Take 1 Capsule (20 mg) by mouth two times a day. Take 1 hour before a meal. 180 Capsule 3 06/12/19 24 Active Additional Information Patient taking differently:20 mg OralDAILY, Take 1 hour before a meal., Reported on 10/13/2024 budesonide-formote rol (SYMBICORT) 80-4.5 MCG/ACT inhalerIndications :Stage 2 moderate COPD by GOLD classification ([facility]) Inhale 1 Puff two times a day. Rinse mouth/gargle after use. 1 Each 6 09/05/19 24 Active bumetanide (BUMEX) 1 MG tablet TAKE 1 TABLET(1 MG) BY MOUTH DAILY 90 Tablet 3 12/06/19 24 Active nitroglycerin (NITROSTAT) 0.4 MG sublingual tabletIndications: Stented coronary artery Place 1 Tablet (0.4 mg) under tongue every 5 minutes as needed for Chest Pain. If no relief after 5 minutes call 911;continue 1 tablet every 5 minutes maximum of 3 tablets 100 Tablet 11 04/28/19 25 Active clopidogrel (PLAVIX) 75 MG tabletIndications: Stented coronary artery TAKE 1 TABLET BY MOUTH EVERY DAY 90 Tablet 3 06/23/19 25 Active losartan (COZAAR) 50 MG tablet Take 1 Tablet (50 mg) by mouth daily. 90 Tablet 3 07/30/19 25 026 Active Additional Information Patient taking differently: 25 mgOral DAILY, Reported on 10/13/2024 amLODIPine (NORVASC) 5 MG tablet TAKE 1 TABLET(5 MG) BY MOUTH DAILY 90 Tablet 10/08/19 25 Active rosuvastatin (CRESTOR) 20 MG tablet TAKE 1 TABLET(20 MG) BY MOUTH DAILY 90 Tablet 10/08/19 25 Active methylcellulose (CITRUCEL) oral powder Take 2 g by mouth daily. Active loperamide (IMODIUM) 2 MG capsule Take 1 Capsule (2 mg) by mouth 4 times daily as needed for Diarrhea. Active gabapentin (NEURONTIN) 100 MG capsule Take 2 Capsules (200 mg) by mouth daily at bedtime. 180 Capsule 1 10/20/19 25 Active carvedilol (COREG) 12.5 MG tabletIndications: Essential hypertension (HRC) TAKE 1 TABLET(12.5 MG) BY MOUTH TWICE DAILY 180 Tablet 10/22/19 25 Active Active Problems Problem Noted Date Diagnosed Date Coronary artery disease 06/17/2023 Stented coronary artery 09/20/2022 Overview (10/25/2023): Patient is on Clopidogrel (Plavix) following stent placement. Date of Intervention: 09/20/2022 Type of Stent: HAILE Plan for indefinitely DAPT TIMOTHY (obstructive sleep apnea) 01/03/2022 Overview (01/03/2022): Moderate by HST 10/2021 Paresthesia 12/27/2020 Vitamin B12 deficiency 10/18/2020 Overview (10/18/2020): Paresthesias. Start oral B12 09/2020 Hyponatremia 07/13/2019 SIADH (syndrome of inappropriate ADH production) 07/13/2019 Anxiety disorder 07/13/2019 Sacroiliac joint dysfunction 12/23/2018 Fatty liver 02/04/2018 Umbilical hernia without obstruction and without gangrene 06/11/2017 Tinea pedis of both feet 06/11/2017 Stage 2 moderate COPD by GOLD classification Overview (06/12/2016): Quit smoking 04/2016. 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 06/24/2019 Pain in joint involving left pelvic region and thigh 12/23/2018 09/18/2021 Non-recurrent unilateral ing uinal hernia without obstruction or gangrene 03/18/2018 09/19/19 Panic attack 06/12/2016 09/18/2021 Encounters Date Type Department Care Team Description 11/09/2024 Results Follow-Up NEPHROLOGY IP SERVICE [address] [place] [id number] Jonah Riggins MD 11/05/2024 12:10 PM CDT Lab Visit [address] [address] Hyponatremia; Localized edema 10/30/2024 Results Follow-Up [facility] Nephrology [address] [place] [address] Jonah Riggins MD 10/27/2024 1:10 PM CDT Lab Visit [place] [id number] [place] [phone] Hyponatremia 10/21/2024 Telephone [facility] [address] [place] [address] Kelli Vasquez, PharmD BLOOD PRESSURE CHECK 10/21/2024 Refill [facility] [address] [place], [place] [phone] Geneva Singer MD Refill (carvedilol (COREG) 12.5 MG tablet [Pharmacy Med Name: CARVEDILOL 12.5MG TABLETS]) 10/18/2024 Refill [facility] Internal Medicine [address] [place], [place] [phone] Geneva Singer MD Refill (gabapentin (NEURONTIN) 100 MG capsule [Pharmacy Med Name: GABAPENTIN 100MG CAPSULES]) 10/13/2024 1:00 PM CDT Phone Visit [facility] [address] [place] [address] Kelli Vasquez, PharmD Polypharmacy (Primary Dx) 10/09/2024 Results Follow-Up [facility] [address] [place] [address] Grace Francois FOLLOW-UP, TEST RESULTS 10/07/2024 12:15 PM CDT Ancillary Procedure [facility] CT [address] [place] [address] Geneva Singer MD Stopped smoking with greater than 20 pack year history 10/06/2024 Refill [facility] Internal Medicine [address] [place] [address] Geneva Singer MD Refill (amLODIPine (NORVASC) 5 MG tablet [Pharmacy Med Name: AMLODIPINE BESYLATE 5MG TABLETS]; rosuvastatin (CRESTOR) 20 MG tablet [Pharmacy Med Name: ROSUVASTATIN 20MG TABLETS]) 09/29/2024 Results Follow-Up [facility] Nephrology [address] [place] [address] Jonah Riggins MD 09/25/2024 11:40 AM CDT Lab Visit Laboratory at [address] [phone] Hyponatremia 09/22/2024 10:00 AM CDT E-Visit [facility] [address] [address] Jonah Riggins MD Dx: Hyponatremia (Primary Dx) 09/16/2024 Results Follow-Up [facility] Nephrology [address] [place] [address] Jonah Riggins MD from Last 3 Months Immunizations Immunization Administration Dates Next Due Flu Vac Preserv Free (3+yrs) 01/05/2016 Influenza ([place] Only) (Flul aval Quad 0.5, 3+ yrs) 12/30/2018 Influenza IIV3 (Trivalent) F luzone Highdose, 65+ Yrs (08678) 12/22/2023 Influenza IIV4 (Quadrivalent ) 0.5mL (26743) 12/30/2018,01/17/2018,01/30/2017,2014,11/30/2014 Influenza IIV4 (Quadrivalent ) Fluad, 65+ Yrs 01/19/2021,12/22/2019 Influenza IIV4 (Quadrivalent ) Fluzone, 65+ Yrs 01/07/2023,12/14/2021 Moderna COVID-19 12+ 12/22/2023 PCV20 (Tbwthba22) 05/17/2022 PPSV23 (Pneumovax) 05/20/2018 Pfizer Bivalent 12+ 12/14/2021 Pfizer COVID-19 12+ 01/07/2023 Pfizer Monovalent 12+ 09/04/2021 Pfizer Monovalent 12+ Purple Top 12/25/2020,05/30,05/25/2020 Tdap 08/31/2014 Zoster (Zostavax) 06/29/2016 Zoster RZV (Shingrix) 12/22/2020,10/18/2020 Family History Medical History Relation Name Comments Cancer Father Jame Ramos colon cance r; lung cancer; 2000 Cancer, Colon Father Jame Ramos Cancer, Lung Father Jame Ramos Coronary Artery Disease Father Jame Ramos quad bypass at 62 Heart Disease Father Jame Ramos Quad bypas s Hypertension Father Jame Ramos Other Mother Hypertension Brother 3 Nicolás Ramos Well-managed Cancer, Breast Negative Family History Cancer, Ovary Negative Family History Relation Name Status Comments Father Jame Ramos Mother Alive Brother 1 Alive Nicolás Brother 2 Alive Peter Brother 3 Nicolás Ramos Maternal Grandfather (Age 79) CH F Maternal Grandmother (Age 78) CH F Paternal Grandfather unknown Paternal Grandmother (Age 92) Social History Tobacco Use Types Packs/Day Years Used Date Smoking Tobacco: Former Cigarettes 1 40 0 05/07/1979 - 05/07/2019 Smokeless Tobacco: Never Tobacco Cessation:Counseling Given: Not [...] on file 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 Gender Identity Not on file Sexual Orientation Not on file 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 file Last Filed Vital Signs Vital Sign Reading Time Taken Comments Blood Pressure 147/89 07/28/2024 2:03 PM CDT Pulse 74 07/28/2024 2:03 PM CDT Temperature 36.6 C (97.8 F) 01/09/2024 1:46 PM CDT Respiratory Rate 16 01/09/2024 12:44 PM CDT Oxygen Saturation 97% 04/28/2024 2:22 PM DRAW BENCH OPERATOR Inhaled Oxygen Concentration - - Weight 97.5 kg (215 lb) 07/28/2024 2:03 PM CDT Height 170.2 cm (5' 7) 07/28/2024 2:03 PM CDT Body Mass Index 33.67 07/28/2024 2:03 PM CDT Plan of Treatment Upcoming Encounters Date Type Department Care Team (Late st Contact Info) Description 01/25/2025 5:00 PM CDT Appointment [facility] Internal Medicine [address] [place] [address] Geneva Singer MD [address] [place] [address] Medicare Annual Wellness Health Maintenance Due Date Last Done Comments RSV Vaccine (1 - Risk 60-74 years 1-dose series) 2014 Medicare Annual Wellness Visit 04/01/2024 10/24/2023, 07/23/2022, 12/20/2021, Additional history exists DTaP/Tdap/Td Vaccine (2 - Tdap) 08/31/2024 08/31/2014 COVID-19 Vaccine ( season) 2024 12/22/2023, 01/07/2023, 12/14/2021, Additional history exists Influenza Vaccine (#1) 2024 , 01/07/2023, 12/14/2021, Additional history exists Prediabetes: HGBA1C 05/29/2025 05/29/2024, 04/16/2023, 07/18/2022, Additional history exists Lung Cancer Screening 10/07/2025 10/07/2024 , 09/05/2023, 08/30/2022, Additional history exists MTM Targeted 10/13/2025 10/13/2024, 09/29, 10/13/2024, Additional history exists Colonoscopy 01/05/2026 01/05/2021, 08/31 (Completed) Cholesterol 11/10/2028 11/11/2023, 06/30, 04/23/2017, Additional history exists Hep C Screening (Preventive Services) Completed 06/12/2016 Abdominal Aortic Aneurysm (AAA) Screening Completed 02/24/2020 (Completed) Zoster/Shingles Vaccine Completed 12/23/19, 10/18/2020, 06/29/2016 Pneumococcal Vaccine 50+ Yrs Completed 05/17/2022, 05/20/2018 PSA Screening Discussion Discontinued 024, 10/24/2022, 08/03/2021, Additional history exists HepA Vaccine Aged Out No longer eligi ble based on patient's age to complete this topic HepB Vaccine Aged Out No longer eligi ble based on patient's age to complete this topic Hib Vaccine Aged Out No longer eligi ble based on patient's age to complete this topic MCV4 Vaccine Aged Out No longer eligi ble based on patient's age to complete this topic Meningococcal B Vaccine Aged Out No l onger eligible based on patient's age to complete this topic Medical Devices Implanted Type Area Auto Damage Insurance Appraiser Device Identifier Shelf Expiration Date Model / Serial / Lot Plug Perfix Lg 1.6x1.9in C/6 - [id number] Implanted:Qty: 1 on 05/30/2018 by Perry Gonzalez MD at [facility] DEVICE Right: INGUINAL [employer] 10/26/2022 [id number] / / [id number] Mesh Progrip 14x9 Rt - [id number] Implanted:Qty: 1 on 05/30/2018 by Perry Gonzalez MD at [facility] DEVICE Right: INGUINAL Covidien - Surg Soln 11/29/2022 [id number] / / [id number] Procedures Procedure Name Priority Date/Time Associated Diagnosis Comments BASIC METABOLIC PANEL Routine 11/05/2024 12:12 PM CDT Hyponatremia Localized edema BASIC METABOLIC PANEL Routine 10/27/2024 1:[address] CHEST WO IV CONT LUNG SCREENING Routine 10/07/2024 12:23 PM CDT Stopped smoking with greater than 20 pack year history BASIC METABOLIC PANEL Routine 09/25/2024 11:42 AM CDT Hyponatremia HGB A1C Routine 05/29/2024 12:03 PM DRAW BENCH OPERATOR IFG (impaired fasting glucose) PROSTATIC SPECIFIC ANTIGEN(SCREEN) Routine 12/19/2023 12:25 PM CDT Urinary urgency Encounter for screening for malignant neoplasm of prostate LIPID PANEL & DIRECT LDL (IF NEEDED) Routine 11/11/2023 1:40 PM CDT Obesity, unspecified classification, unspecified obesity type, unspecified whether serious comorbidity present (HRC) COLONOSCOPY S 01/05/2021 HEPATITIS C ANTIBODY, WITH REFLEX (ANTI-HCV) Routine 06/12/2016 2:10 PM CDT Need for hepatitis C screening test from Last 3 Months or Most Recently Relevant to Health Maintenance Results * (ABNORMAL) Basic Metabolic Panel (11/05/2024 12:12 PM CDT) Only the most recent of3 resultswithin the time period is included. Sodium 134(L) 136 - 145 mmol/L 11/05/2024 5:03 PM [facility] Potassium 4.5 3.5 - 5.1 mmol/L 11/05/2024 5:03 PM [facility] Chloride 98 98 - 109 mmol/L 11/05/2024 5:03 PM [facility] CO2 24 20 - 29 mmol/L 11/05/2024 5:03 PM [facility] Anion Gap 12 6 - 16 mmol/L 11/05/2024 5:03 PM [facility] Calcium 9.3 8.4 - 10.4 mg/dL 11/05/2024 5:03 PM [facility] BUN 13 7 - 26 mg/dL 11/05/2024 5:03 PM [facility] Creatinine 0.70(L) 0.73 - 1.18 mg/dL 11/05/2024 5:03 PM [facility] Glucose 93 70 - 100 mg/dL 11/05/2024 5:03 PM [facility] Comment:The given reference range is for the fasting state. Non-fasting reference range for glucose is 70 - 180 mg/dL. GFR, Estimated >60 >60 mL/min/1.7 3m2 11/05/2024 5:03 PM [facility] Hours Fasting 0.0 8 - 12 Hours 11/05/2024 5:03 PM [facility] Blood Venipuncture / Unknown 11/05/2024 12:12 PM CDT 11/05/2024 12:12 PM CDT Jonah Riggins MD LAB_1 Final Result [facility] [address] [place] [address], [facility] * CT Chest WO IV Cont Lung Screening (10/07/2024 12:23 PM CDT) Anatomical Region Laterality Modality Chest, Lung Computed Tomogra phy 10/07/2024 12:2 3 PM CDT Narrative 10/08/2024 8:07 AM CDT EXAM: LOW DOSE LUNG CANCER SCREENING CT CHEST LOCATION: [facility] DATE: 10/07/2024 INDICATION: Lung cancer screening. History of smoking. High risk patient. COMPARISON: 09/05/2023 TECHNIQUE: Low-dose lung cancer screening non-contrast CT chest. Dose reduction techniques were used. Images assessed using LungRADS 2022 criteria. FINDINGS: NODULES: A few stable pulmonary nodules with the largest measuring 0.4 cm in the right upper lobe, image 134:3. LUNGS AND PLEURA: Mild emphysema. Stable mild biapical pleural scarring. New subpleural atelectasis/scar in the anterior/lateral left upper lobe. Left upper lobe thoracotomy. MEDIASTINUM: Normal. CORONARY ARTERY CALCIFICATION: Severe. LIMITED UPPER ABDOMEN: Hepatic steatosis. MUSCULOSKELETAL: Degenerative changes. IMPRESSION: 1. Negative for lung cancer screening purposes. LungRADS CATEGORY: 2 : Benign. -Perifissural nodule(s): <10 mm -Solid nodule(s): <6 mm on baseline screening; or new nodule <4 mm -Subsolid nodule(s): <6 mm on baseline screening -Ground glass nodule(s): <30 mm at baseline, new or slowly growing; 30 mm or larger and unchanged or slowly growing -Category 3 nodules that are unchanged for greater than or equal to 6 months -Category 4 lesions proven to be benign following appropriate workup -Airway nodule, subsegmental at baseline, new or stable RADIOLOGIST RECOMMENDATION(S): If eligible, continue annual screening with low- dose CT chest in 12 months. Geneva Singer MD RAD CT Final Result * (ABNORMAL) Hgb A1C (05/29/2024 12:03 PM [facility]) Hemoglobin A1C 6.0(H) <=5.6 % 05/29/2024 8:43 PM [facility] Estimated Average Glucose (Calc) 126 < 117 mg/dL 05/29/2024 8:43 PM [facility] Comment:Estimated average gl ucose (eAG) converts A1c into glucose units (mg/dL) and estimates average glucose over the past approximately 3 months. The eAG reference interval (<117 mg/dL) corresponds to an A1c of <5.7%. Blood Venipuncture / Unknown 05/29/2024 12:03 PM DRAW BENCH OPERATOR 05/29/2024 12:03 PM DRAW BENCH OPERATOR Narrative [facility] - 05/29/2024 8:43 PM DRAW BENCH OPERATOR For patients not previously diagnosed with diabetes: 5.7-6.4%: Increased risk for diabetes 6.5% and greater: Diagnostic for diabetes For patients diagnosed with diabetes: <8.0%: Goal of therapy for ages 18-75 Clinicians may recommend a higher or lower goal for specific individuals. Archana Muniz PA-C LAB_1 Final Resu lt Performing Organization Address [place] Co de Phone Number [facility] [address] * Prostatic Specific Antigen (Screen) (12/19/2023 12:25 PM CDT) [facility] Prostatic Specific Antigen 0.4 0.0 - 4.0 ng/mL 12/19/2023 6:14 PM CDT [facility] Blood Venipuncture / Unknown 12/19/2023 12:25 PM CDT 12/19/2023 12:25 PM CDT [facility] - 12/19/2023 6:14 PM CDT The Pulmatrix PSA Chemiluminescent immunoassay is used. Results obtained with different test methods or kits cannot be used interchangeably. Geneva Singer MD LAB_1 Final Result Performing Organization Address [facility] de Phone Number [facility] [address] * (ABNORMAL) Lipid Panel and Direct LDL (If Needed) (11/11/2023 1:40 PM CDT) Cholesterol 163 0 - 199 mg/dL 11/11/2023 6:22 PM CDT [facility] Triglyceride 265(H) <=149 mg/dL 11/11/2023 6:22 PM T [facility] HDL Cholesterol 54 >=40 mg/dL 6:22 PM T [facility] LDL, Calculated 56 <130 mg/dL 6:22 PM T [facility] Non HDL Chol, Calculated 109 <=159 mg/dL 11/11/2023 6:22 PM CDT [facility] Cholesterol/HDL Ratio 3.0 <=5.0 11/11/2023 6:22 PM CDT [facility] Hours Fasting 0.0 8 - 12 Hours 11/11/2023 6:22 PM CDT [facility] Blood Venipuncture / Unknown 11/11/2023 1:40 PM CDT 11/11/2023 1:40 PM CDT Geneva Singer MD LAB_1 Final Result Performing Organization Address [facility] Co de Phone Number [facility] [address] [place] [address], [facility] * COLONOSCOPY S (01/05/2021) Geneva Singer MD DUMMY/OTHER/AR Final Result * Hepatitis C Antibody, with Reflex (06/12/2016 2:10 PM CDT) Anti-HCV Negative (Non Reactive) [facility] Comment: Antibodies to HCV not detected. Does not exclude the possibility of exposure to HCV. 06/12/2016 2:10 PM CDT 06/12/2016 2:11 PM CDT Narrative [facility] - 06/12/2016 6:53 PM CDT Performed at [facility], [address] [place] [address] Paty Escamilla MD LAB_1 Final Resu lt [facility] [phone] from Last 3 Months or Most Recently Relevant to Health Maintenance Insurance [employer] MED[employer]ARE ADVANTAGE MEDICARE ADVANTAGE MEDICARE ADVANTAGE Advance Directives * Full Code (Latest Code Status on File) Date Activated Date Inactivated Comments 03/14/2021 12:34 AM 03/15/2021 1:00 PM * Full Code Date Activated Date Inactivated Comments 06/23/2020 5:57 AM 06/26/2020 3:22 PM * Full Code Date Activated Date Inactivated Comments 07/13/2019 2:53 PM 07/15/2019 6:19 PM * Full Code Date Activated Date Inactivated Comments 05/30/2018 6:10 AM 05/30/2018 12:22 PM Care Teams Paper Cone Maker Relationship Specialty Start Date End Date Geneva Singer MD [address] [place] [address] PCP - General Internal Medicine 12/08/19
[2024-12-17 16:45] VITALS: BP 106/71; PULSE 83; RESP 16; TEMP 36.6; O2SAT 92
--- NOTE | 2024-12-17 17:10 | CRLHL7_ITS ---
For Patients: As a result of the Century Cures Act, medical imaging exams and procedure reports are released immediately into your electronic medical record. You may view this report before your referring provider. If you have questions, please contact your health care provider. Indication: Difficulty walking Technique: Multiplanar, multisequence MRI of the brain obtained without contrast. Comparison: None. Findings: There is artifact from patient motion, degrading image quality. No evidence for recent hemorrhage or infarct. No midline shift or mass effect, hydrocephalus or herniation. Prominence of the ventricles and cortical sulci compatible with generalized cerebral volume loss. Scattered punctate foci of FLAIR hyperintensity throughout the cerebral white matter, typical of chronic microangiopathy. Unremarkable midline structures. Grossly preserved major intracranial arterial flow voids. No suspicious bone marrow lesion. No evidence of obstructive paranasal sinus disease or significant mastoid effusion. Unremarkable orbits. Impression: 1. No evidence of acute intracranial abnormality. 2. Mild generalized cerebral volume loss and mild chronic microangiopathy changes. Dictated by Nava Villafana MD @ 12/17/2024 6:18:04 PM (Electronically Signed)
--- NOTE | 2024-12-17 17:27 | ED.GENADULT ---
HPI - General Adult General Date Seen: 12/17/24 Chief complaint: Neuro Symptoms/Altered Deficit Stated complaint: possible stroke Time Seen by Provider: 12/17/24 17:03 History of Present Illness HPI narrative: Patient is a 69-year-old here with his for evaluation of difficulty walking, weakness. He has been having trouble for a few days, feeling unsteady on his feet. Symptoms wax and wane, was bad yesterday afternoon, then a little better this morning, then bad again this afternoon. He does not really describe vertigo but he has felt like his balance is off. He says this has happened to him before when his sodium is gotten low, his tells me that he has been admitted several times for hyponatremia and sees a family support worker for this. She says he has normal kidney function. However, he says that the symptoms are worse than what he is used to with his hyponatremia. His came home from work today and said that she was concerned about how much difficulty was having with balance and so brought him in for evaluation. He denies any headache, chest pain, difficulty breathing, abdominal or back pain, vomiting or bloody stools. He has chronic intermittent diarrhea related to irritable bowel syndrome. He is not aware of any focal neurologic changes. Might have had some trouble with his speech yesterday. Related Data Home Medications ?Medication ?Instructions ?Recorded ?Confirmed amlodipine 5 mg tablet 5 mg PO DAILY 03/15/22 12/17/24 omeprazole 20 mg capsule,delayed 20 mg PO DAILY 03/15/22 12/17/24 release aspirin 81 mg tablet,delayed 81 mg PO QDAY 11/24/22 12/17/24 release (Adult Low Dose Aspirin) carvedilol 12.5 mg tablet 12.5 mg PO BID blood pressure 11/24/22 12/17/24 clopidogrel 75 mg tablet 75 mg PO DAILY 11/24/22 12/17/24 nitroglycerin 0.4 mg sublingual 0.4 mg sublingual ONCE 11/24/22 12/17/24 tablet rosuvastatin 20 mg tablet 20 mg PO QPM 11/24/22 12/17/24 vilazodone 40 mg tablet 40 mg PO DAILY 05/15/24 12/17/24 gabapentin 300 mg capsule 300 mg PO QDAY 08/20/24 12/17/24 losartan 25 mg tablet 25 mg PO DAILY 08/20/24 12/17/24 Allergies Allergy/AdvReac Type Severity Reaction Status Date / Time No Known Drug Allergies Allergy Verified 12/17/24 16:49 Review of Systems Status of ROS: Reports: 10 or more systems reviewed and unremarkable except as noted in History and below [facility] Medical History IBS (irritable bowel syndrome) ?K58.9 - Irritable bowel syndrome, unspecified (ICD-10) Hypertension ?I10 - Essential (primary) hypertension (ICD-10) High cholesterol ?E78.00 - Pure hypercholesterolemia, unspecified (ICD-10) COPD (chronic obstructive pulmonary disease) ?J44.9 - Chronic obstructive pulmonary disease, unspecified (ICD-10) COVID ?U07.1 - COVID-19 (ICD-10) Sinus infection ?J32.9 - Chronic sinusitis, unspecified (ICD-10) Malaise ?R53.81 - Other malaise (ICD-10) Social History Smoking Status: Former smoker Do you use any of these nicotine containing products: None Exam Narrative: Exam Narrative: Vital signs reviewed In general, alert, nontoxic elderly male. Breathing easily, speaking comfortably. Head: Normocephalic, atraumatic. Eyes: Sclera clear. Pupils equal and reactive. Extraocular movements are full. ENT: Mucous membranes moist. Neck: Supple without adenopathy. Heart: Regular rate and rhythm without murmur. Lungs: Clear. No increased work of breathing, crackles or wheezes. Abdomen: Soft, Protuberant, soft, nontender. Reducible umbilical hernia. Extremities: Well perfused, pulses intact. No significant edema. Neurologic: Alert, conversant. Speech fluent, face symmetric. Moves all extremities equally. Cerebellar function intact by finger-nose testing and heel-winn testing. I did get him up to walk, he has little unsteady on turns but is able to walk a straight line With minimal difficulty. His feels that his gait is different than usual, when I asked her how so she said that he has marching rather than walking normally. I would agree that he seems to just be more deliberate about picking up his feet with each step then I would say is normal for the usual gait. Skin: Warm, dry well perfused. Affect: Normal. Const: Vital Signs, click to edit/add: Vital Signs - 24 hr 12/17/24 16:45 Temperature 97.9 F Pulse Rate [Pulse Oximeter] 83 Respiratory Rate 16 Blood Pressure [Ri ght Upper Arm] 106/71 Pulse Oximetry 92 Oxygen Delivery Me thod Room Air Course Course ED Course: Patient presents with some balance problems, minimal findings on exam aside from gait being just a little more deliberate than might be normal. No other acute findings on neurologic exam. I did elect to do an MRI of the brain to rule out stroke, and this is read by Radiology as negative for any acute findings, he has age related findings. His labs are quite unremarkable. His hemoglobin is 12.6 which is down a little bit from last time it was checked, but certainly not low enough to be causing him problems. He does not describe any acute bleeding. His metabolic panel shows a sodium of 134, all other electrolytes are normal, lactate 1.2, he has mild elevations of his AST and ALT of indeterminate important today. I reviewed all this with the patient and his . Overall, symptoms are likely to be related to inner ear given that he does not have appear to have a central cause. He has had symptoms now for 4 days, does not have any findings on exam I doubt that this is related to a more peripheral problems such as Guillain-[place] or acute lumbar problems such as abscess, mass etcetera. I think it is reasonable to discharge home, recommend ENT or primary care follow-up if not improving over the next couple of days. Return any time for acute worsening, new neurologic changes or other concerns. Vital Signs Vital signs: Initial Vital Signs Temperature 97.9 F 12/17/24 16:45 Temperature Source Temporal Artery Scan 12/17/24 16:45 Pulse Rate 83 12/17/24 16:45 Respiratory Rate 16 12/17/24 16:45 Blood Pressure 106/71 12/17/24 16:45 Blood Pressure Mean 82 12/17/24 16:45 Blood Pressure Position Sitting 12/17/24 16:45 Pulse Oximetry 92 12/17/24 16:45 Oxygen Delivery Method Room Air 12/17/24 16:45 Vital Signs Temperature 97.9 F 12/17/24 16:45 Pulse Rate 83 12/17/24 16:45 Respiratory Rate 16 12/17/24 16:45 Blood Pressure 106/71 12/17/24 16:45 Pulse Oximetry 92 12/17/24 16:45 Oxygen Delivery Method Room Air 12/17/24 16:45 Temperature 97.9 F 12/17/24 16:45 Pulse Rate 83 12/17/24 16:45 Respiratory Rate 16 12/17/24 16:45 Blood Pressure 106/71 12/17/24 16:45 Pulse Oximetry 92 12/17/24 16:45 Oxygen Delivery Method Room Air 12/17/24 16:45 Medical Decision Making Lab Data Labs: Lab Results 12/17/24 Range/Units 18:35 WBC 4.24 L (4.50-11.00) K/uL RBC 4.03 L (4.30-5.90) m/uL Hgb 12.6 L (13.5-17.5) gm/dL Hct 38.1 (37.0-53.0) % MCV 95 (80-100) fL MCH 31 (26-34) pg MCHC 33 (32-36) gm/dL RDW Coeff of Dulce 13.7 (11.5-15.5) % Plt Count 176 (140-440) K/uL Neut % (Auto) 60.6 (42.0-72.0) % Lymph % (Auto) 26.9 (20-44) % [place] % (Auto) 9.4 (0.0-11.0) % Eos % (Auto) 1.7 (0.0-7.0) % Baso % (Auto) 1.4 (0.0-3.0) % Neut # (Auto) 2.60 (1.7-7.0) K/uL Lymph # (Auto) 1.10 (0.90-2.90) K/uL [place] # (Auto) 0.40 (0.00-0.90) K/UL Eos # (Auto) 0.10 (0.00-0.50) K/uL Baso # (Auto) 0.10 (0.00-0.30) K/uL Abs Immat Gran (auto) 0.00 (0.00-0.30) K/uL Imm/Tot Granulo (auto) 0.0 % Sodium 134 L (135-149) mmol/L Potassium 4.3 (3.6-5.1) mmol/L Chloride 97 (96-114) mmol/L Carbon Dioxide 28 (20-32) mmol/L Anion Gap 9 (7-15) mEq/L BUN 12 (7-30) mg/dL Creatinine 0.8 (0.5-1.5) mg/dL Estimated GFR 95 ml/min Glucose 100 (60-115) mg/dL Lactate 1.2 (0.5-1.9) mmol/L Calcium 8.6 (8.4-10.6) mg/dL Magnesium 2.0 (1.5-2.6) mg/dL Total Bilirubin 0.2 (0.1-1.5) mg/dL Direct Bilirubin 0.2 (0.0-0.5) mg/dL AST 105 H (12-35) U/L ALT 57 H (4-50) U/L Alkaline Phosphatase 58 (40-150) U/L Total Protein 6.8 (6.0-8.3) g/dL Albumin 4.0 (3.3-5.0) g/dL Imaging Data MRI brain: Attestation: I have reviewed the pertinent imaging results. Radiologist's impression: Patient: Efrain Ramos MR#: [id number] : 1955 Acct:[id number] Loc: ED Service Date: 12/17/[address]: Ordering Physician: Faye Peter M.D. Date of Service: 12/17/24 Procedure(s): MR head/brain wo [facility] Accession Number(s): [id number] cc: Faye Peter M.D.; Geneva Singer M.D.~ For Patients: As a result of the Century Cures Act, medical imaging exams and procedure reports are released immediately into your electronic medical record. You may view this report before your referring provider. If you have questions, please contact your health care provider. Indication: Difficulty walking Technique: Multiplanar, multisequence MRI of the brain obtained without contrast. Comparison: None. Findings: There is artifact from patient motion, degrading image quality. No evidence for recent hemorrhage or infarct. No midline shift or mass effect, hydrocephalus or herniation. Prominence of the ventricles and cortical sulci compatible with generalized cerebral volume loss. Scattered punctate foci of FLAIR hyperintensity throughout the cerebral white matter, typical of chronic microangiopathy. Unremarkable midline structures. Grossly preserved major intracranial arterial flow voids. No suspicious bone marrow lesion. No evidence of obstructive paranasal sinus disease or significant mastoid effusion. Unremarkable orbits. Impression: 1. No evidence of acute intracranial abnormality. 2. Mild generalized cerebral volume loss and mild chronic microangiopathy changes. Dictated by Nava Villafana MD @ 12/17/2024 6:18:04 PM Discharge Plan Discharge Clinical Impression: Difficulty balancing when standing Patient Disposition: Home, Self-Care Condition: Stable Instructions: Dizziness (ED) Additional Instructions: Your test today are all reassuring. You sodium is 134, which is just a tick lower than the normal range. Certainly not low enough to be causing significant symptoms. Other labs are reassuring as well, your hemoglobin is little bit lower today than it was the last time it was checked, at 12.6, but again this is not concerning low. Your MRI does not show any acute findings such as a stroke, bleed, mass. You have age-related changes. Problems with balance in the absence of other explanation can often be due to a problem with the inner ear. I would recommend primary care follow-up or follow-up in ENT, , if you do not feel your improving over the next couple of days, as physical therapy can sometimes be helpful. If you feel you are worsening or have new neurologic symptoms, return to the emergency department at any time. Prescriptions: No Action omeprazole 20 mg capsule,delayed release(DR/EC) 20 mg PO DAILY amlodipine 5 mg tablet 5 mg PO DAILY Patient Comments: TAKE 1 TABLET BY MOUTH DAILY losartan 25 mg tablet 25 mg PO DAILY vilazodone 40 mg tablet 40 mg PO DAILY gabapentin 300 mg capsule 300 mg PO QDAY carvedilol 12.5 mg tablet 12.5 mg PO BID rosuvastatin 20 mg tablet 20 mg PO QPM clopidogrel 75 mg tablet 75 mg PO DAILY aspirin [Adult Low Dose Aspirin] 81 mg tablet,delayed release (DR/EC) 81 mg PO QDAY nitroglycerin 0.4 mg tablet, sublingual 0.4 mg sublingual ONCE Rx Instructions: as a single dose; administer 5-10 minutes before situation known to precipitate angina attack Follow Up/Referrals: Geneva Singer MD [Primary Care Provider, Internal Medicine] Stand Alone Forms: MyHealth Info Instructions
[2024-12-17 18:45] LABS: Hematocrit* 38.1 % (37.0-53.0); Hemoglobin* 12.6 gm/dL (13.5-17.5); Immature Granulocytes Abs Auto 0.00 K/uL (0.00-0.30); Immature Granulocytes Pct Auto 0.0 %; Mean Corpuscular HGB Conc 33 gm/dL (32-36); Mean Corpuscular Hemoglobin 31 pg (26-34); Mean Corpuscular Volume 95 fL (80-100); RDW Coefficient of Variation % 13.7 % (11.5-15.5); Red Blood Count* 4.03 m/uL (4.30-5.90); White Blood Count* 4.24 K/uL (4.50-11.00)
[2024-12-17 18:46] LABS: Lactate Sepsis w/Reflex* 1.2 mmol/L (0.5-1.9)
[2024-12-17 18:47] LABS: Lymphocytes Absolute Auto 1.10 K/uL (0.90-2.90)
[2024-12-17 18:48] LABS: Slide Review Reflex No
[2024-12-17 19:01] LABS: Albumin* 4.0 g/dL (3.3-5.0); Chloride* 97 mmol/L (96-114); Sodium* 134 mmol/L (135-149)
[2024-12-17 19:02] LABS: Potassium* 4.3 mmol/L (3.6-5.1)
[2024-12-17 19:04] LABS: Alanine Aminotransferase* 57 U/L (4-50); Anion Gap 9 mEq/L (7-15); Aspartate Amino Transferase* 105 U/L (12-35); Blood Urea Nitrogen* 12 mg/dL (7-30); Carbon Dioxide* 28 mmol/L (20-32); Creatinine* 0.8 mg/dL (0.5-1.5); Estimated Glomerular Filt Rate 95 ml/min; Total Protein* 6.8 g/dL (6.0-8.3)
[2024-12-17 19:05] LABS: Alkaline Phosphatase* 58 U/L (40-150); Bilirubin Direct* 0.2 mg/dL (0.0-0.5); Bilirubin Total* 0.2 mg/dL (0.1-1.5); Calcium* 8.6 mg/dL (8.4-10.6); Glucose* 100 mg/dL (60-115)
[2024-12-17 19:35] VITALS: BP 140/78; PULSE 74
== END 2024-12-17 21:02 | disposition home or self-care (01) ==
PROVIDERS: Emergency Provider Emergency Medicine; PCP Internal Medicine
DX: R26.81 Unsteadiness on feet (principal)
CPT/HCPCS: 36415; 70551; 80048; 80076; 83605; 83735; 85025; 99284

== ENCOUNTER 2025-01-19 15:03 | Outpatient (CLI) | payer OTHER, SELFPAY | END 2025-01-19 15:04 | disposition home or self-care (01) | PROVIDERS: PCP Internal Medicine; Visit Provider Physician Assistant | DX: R26.81 Unsteadiness on feet (principal) | CPT/HCPCS: 82306; 82607; 82728; 82746 ==

== ENCOUNTER 2025-01-26 15:40 | Outpatient (CLI) | payer OTHER, SELFPAY ==
--- NOTE | 2025-01-26 16:00 | CRLHL7_ITS ---
For Patients: As a result of the Century Cures Act, medical imaging exams and procedure reports are released immediately into your electronic medical record. You may view this report before your referring provider. If you have questions, please contact your health care provider. INDICATION: Conductive hearing loss. COMPARISON: None. TECHNIQUE: Noncontrast CT of the anabaptist bones. FINDINGS: Right: The right mastoid air cells and mastoid antrum are clear. Middle ear cavity is clear. Normal articulation of the ossicular chain. No opacification of sinus tympani. Normal tympanic membrane. The external auditory canal is patent. Tegmen tympani is intact. Normal mineralization of the otic capsule. Normal cochlea and vestibule. There is marked thinning and dehiscence of the osseous margin of the superior semicircular canal (best seen on series 8, image 51; series 7, image 72). Normal internal auditory canal. Left: The left mastoid air cells and mastoid antrum are clear. Middle ear cavity is clear. Normal articulation of the ossicular chain. No opacification of sinus tympani. Normal tympanic membrane. The external auditory canal is patent. Tegmen tympani is intact. Normal mineralization of the otic capsule. Normal cochlea and vestibule. Marked thinning and dehiscence of the osseous margin of the superior semicircular canal (best appreciated on series 9, image 37 series 6, image 53). Normal internal auditory canal. Other: Visualized paranasal sinuses are clear. Impression : 1. Marked thinning or dehiscence of the osseous margin of the bilateral superior semicircular canals. 2. Remainder of the bilateral vertebral bony structures are normal Please note that all CT scans at this facility use dose modulation, iterative reconstruction, and/or weight-based dosing when appropriate to reduce radiation dose to as low as reasonably achievable. Dictated by Osmani Ruth MD @ 01/27/2025 9:37:03 AM (Electronically Signed)
== END 2025-01-26 15:41 | disposition home or self-care (01) ==
LOC: CT 15:41
PROVIDERS: PCP Internal Medicine; Visit Provider Physician Assistant
DX: H90.8 Mixed conductive and sensorineural hearing loss, unspecified (principal); R26.81 Unsteadiness on feet
CPT/HCPCS: 70480

== ENCOUNTER 2025-03-04 13:13 | Outpatient (CLI) | payer OTHER, SELFPAY ==
--- NOTE | 2025-03-04 14:00 | CRLHL7_ITS ---
For Patients: As a result of the Century Cures Act, medical imaging exams and procedure reports are released immediately into your electronic medical record. You may view this report before your referring provider. If you have questions, please contact your health care provider. Indication: UMBILICAL HERNIA Technique: Noncontrast CT abdomen and pelvis Please note that all CT scans at this facility use dose modulation, iterative reconstruction, and/or weight-based dosing when appropriate to reduce radiation dose to as low as reasonably achievable. Comparison: 11/24/2022 Findings: Chronic sigmoid diverticulosis. No acute diverticulitis. No bowel obstruction. Appendix normal. Bladder partially distended. No pelvic mass. Vascular calcifications. Adrenal glands normal. Normal kidneys. Spleen within normal limits. Normal pancreas. Small stones in the gallbladder. Fatty liver. No adrenal nodule. Lung bases clear. No hiatal hernia. Stomach unremarkable. Incidental duodenal lipomas are present. Umbilical hernia is present which measures 5.5 cm and contains a noninflamed loop of ileum. Degenerative disc disease L4-5 and L2-3. No fracture. No free air, free fluid, abscess or adenopathy. Impression: 5.5 cm umbilical hernia containing a loop of noninflamed ileum. Chronic sigmoid diverticulosis. Cholelithiasis. Hepatic steatosis. Please note that all CT scans at this facility use dose modulation, iterative reconstruction, and/or weight-based dosing when appropriate to reduce radiation dose to as low as reasonably achievable. Dictated by Nikita Gaona MD @ 03/04/2025 3:48:53 PM (Electronically Signed)
== END 2025-03-04 13:14 | disposition home or self-care (01) ==
PROVIDERS: PCP Internal Medicine; Visit Provider Surgery
DX: K42.9 Umbilical hernia without obstruction or gangrene (principal); K57.30 Diverticulosis of large intestine without perforation or abscess without bleeding; K80.20 Calculus of gallbladder without cholecystitis without obstruction; K76.9 Liver disease, unspecified
CPT/HCPCS: 74176

== ENCOUNTER 2025-03-23 09:58 | Day surgery (SDC) | payer OTHER, SELFPAY ==
[2025-03-23] VITALS (9 sets, daily range): BP systolic 110–135; BP diastolic 72–94; PULSE 58–66; RESP 16–20; TEMP 36.3–36.8; O2SAT 87–94; BMI 33.3
[2025-03-23] MEDS: LACTATED RINGERS 1000 ML 1,000 ML 100 ML IV (10:42)
[2025-03-23] MEDS: SODIUM CHLORIDE 0.9 % (FLUSH) 10 ML SYRINGE IVF (10:42)
--- NOTE | 2025-03-23 11:29 | W.PM.H&PU ---
History & Physical Update History & Physical Update H&P Reviewed and patient assessed: No changes noted
[2025-03-23] MEDS: BUPIVACAINE 0.25% 30 ML 10 ML INJECTION (12:36)
--- NOTE | 2025-03-23 12:44 | P.GSOP_ITS ---
Operative Note Date of procedure: 03/23/25 Pre-op diagnosis: Umbilical hernia Post-op diagnosis: Same Type of Procedure: Open umbilical hernia repair Indications: Patient presented to clinic with a symptomatic umbilical hernia. Risks and benefits of operative intervention were discussed at length with the patient. Risks included but was not limited to: Bleeding, infection, risk of damage to surrounding structures, possible need for additional procedures, risk of recurrence and postoperative complications such as pneumonia, pulmonary emboli or DE. All questions and concerns were addressed with the patient agreeing to proceed. Procedure Description: After discussing the risks and benefits of the procedure, the patient signed informed consent.? The operative site was marked and the patient was brought to the operating room and placed on the operating table in supine position.? Care was taken to pad the patient's pressure points.?? The patient was then given sedation by anesthesia.?? The operative site was then prepped and draped in the usual sterile fashion.? A time-out was then performed. A curvilinear incision was made at the umbilicus. Dissection was carried down into the subcutaneous tissue using cautery. The hernia sac was encountered. A small incision was made in the hernia sac. Evidence of incarcerated bowel that was easily reduced. Dissection was taken down to the fascia, and the umbilical stock was carefully dissected off of the hernia sac. Once the hernia sac was dissected out circumferentially, it was reduced. The fascial edges were then cleared circumferentially. The hernia was 2 cm in size and so the decision was made to use a piece of mesh. A preperitoneal pocket was created using a combination of blunt dissection and cautery. Hemostasis appeared adequate. Once the posterior fascia was clear, a piece of [address] hernia mesh was placed i n the preperitoneal space with care to ensure that it laid flat. This was secured into place using 2 0 PDS interrupted sutures. The tails were then trimmed and the fascial opening was closed with a running 0 Vicryl. Local anesthetic was injected into the fascia, skin and subcutaneous tissues. The umbilicus was reapproximated to the fascia. The skin was then closed with running absorbable suture. A sterile dressing was then applied. The patient was then woken and transported to the recovery area in stable condition. ? The patient tolerated the procedure well. Findings: Umbilical hernia with incarcerated small bowel, easily reduced. Implants: 6 Phasix mesh Anesthesia: MAC Surgeon: Wandy Vyas MD Estimated blood loss (mL): 15 Condition: stable Disposition: PACU
--- NOTE | 2025-03-23 13:06 | P.ANES_ITS ---
Anesthesia Charges Start Date/Time Anesthesia Start Date: 03/23/25 Anesthesia Start Time: 11:49 Stop Date/Time Anesthesia Stop Date: 03/23/25 Anesthesia Stop Time: 13:05 Coding CPT Codes CPT Codes: ANESTH REPAIR OF HERNIA - 64320 ([id number]) P3 - PATIENT W/SEVERE SYS DISEASE, QK - METALLURGIST PROCESS 2-4 CNCRNT ANES PROC, QX - INCENDIARIES SUPERVISOR SVC W/ MD MED DIRECTION
--- NOTE | 2025-03-23 13:06 | W.ANESCHARGE ---
Anesthesia Charges Start Date/Time Anesthesia Start Date: 03/23/25 Anesthesia Start Time: 11:49 Stop Date/Time Anesthesia Stop Date: 03/23/25 Anesthesia Stop Time: 13:05 Coding CPT Codes CPT Codes: ANESTH REPAIR OF HERNIA - 71972 ([id number]) P3 - PATIENT W/SEVERE SYS DISEASE, QK - JOB TRAINING SPECIALIST 2-4 CNCRNT ANES PROC, QX - FARMWORKER MACHINE SVC W/ MD MED DIRECTION
[2025-03-23] MEDS: ACETAMINOPHEN 500 MG TABLET 1000 MG PO (14:19)
--- NOTE | 2025-03-23 14:29 | W.ANESCHARGE ---
Anesthesia Charges Start Date/Time Anesthesia Start Date: 03/23/25 Anesthesia Start Time: 11:49 Stop Date/Time Anesthesia Stop Date: 03/23/25 Anesthesia Stop Time: 13:05 Summary Extremes of Age - Over 70 or under 1: MDA Coding CPT Codes CPT Codes: ANESTH REPAIR OF HERNIA - 62520 ([id number]) QK - AGRICULTURIST 2-4 CNCRNT ANES PROC, QX - STRUCTURAL IRON ERECTOR SVC W/ MD MED DIRECTION, P3 - PATIENT W/SEVERE SYS DISEASE Additional Codes: Summary - Extremes of Age - Over 70 or under 1: MDA ([id number])
--- NOTE | 2025-03-23 14:52 | SUR.PHASEII ---
Pt tolerated water and coffee. Pain 4/10- Toradol and Acetaminophen given. Pt ambulated to bathroom, no difficulty voiding. Abd binder on. ice pack given to pt. Reviewed d/c instructions with pt and . All questions answered. pt and verbalized ready for discharge. Wheelchair rode to car with RN.
== END 2025-03-23 14:54 | disposition home or self-care (01) ==
PROVIDERS: PCP Internal Medicine; Visit Provider Surgery
PROC: (CPT 49592; principal; 2025-03-23 11:15)
DX: K42.9 Umbilical hernia without obstruction or gangrene (principal)
CPT/HCPCS: 49592; 00830; 99100; A9270; C1781; J0665; J0690; J1100; J1885; J2405; J2704; J3010; J7120